=== PATIENT | male | born 1940 | race Caucasian/White ===

== ENCOUNTER 2020-02-20 07:14 | Outpatient (REF) | payer MEDICARE, SELFPAY ==
[2020-02-20 07:39] LABS: MANUAL DIFF FLAG NO
[2020-02-20 07:41] LABS: Basophils Absolute Auto 0.1 X10*3/uL (0.0-0.2); Eosinophils Absolute Auto 0.5 X10*3/uL (0.0-0.4); Eosinophils Percent Auto 7.2 % (0-4); Hematocrit 36.5 % (42-52); Hemoglobin 11.9 g/dl (14.0-18.0); Imm Gran Abs Auto 0.02 X10*3/uL (0.00-0.03); Imm Gran Pct Auto 0.3 % (0.0-0.4); Lymphocytes Absolute Auto 2.1 X10*3/uL (1.2-4.9); Lymphocytes Percent Auto 30.2 % (20-40); Mean Corpuscular HGB Conc 32.6 g/dl (31.0-36.0); Mean Corpuscular Hemoglobin 31.2 pg (27.0-33.0); Mean Corpuscular Volume 95.8 fL (80-98); Mean Platelet Volume 8.8 fL (9.4-12.4); Monocytes Absolute Auto 0.7 X10*3/uL (0.1-1.2); Monocytes Percent Auto 10.3 % (2-11); Neutrophils Absolute Auto 3.6 X10*3/uL (2.0-8.3); Platelet Count 334 X10*3/uL (160-400); Red Blood Count 3.81 X10*6/uL (4.60-5.80)
[2020-02-20 08:10] LABS: Alanine Aminotransferase 22 U/L (0-40); Alkaline Phosphatase 104 U/L (39-117); Anion Gap 13 (12-20); Aspartate Amino Transferase 19 U/L (5-37); Bilirubin Total 0.5 mg/dL (0.0-1.0); Blood Urea Nitrogen 29 mg/dL (9-16); Calcium 8.7 mg/dL (8.4-10.2); Carbon Dioxide 27 mmol/L (22-29); Chloride 104 mmol/L (96-108); Cholesterol 203 mg/dL; Estimated Glomerular Filt Rate 40; Glucose Random 102 mg/dL (60-115); HDL Cholesterol 43 mg/dL; LDL Cholesterol Calculated 132 mg/dl; Potassium 4.7 mmol/l (3.3-5.1); Sodium 139 mmol/L (135-145); Total Protein 6.8 g/dL (6.5-8.0); Triglycerides 141 mg/dL
[2020-02-20 08:20] LABS: Estimated Average Glucose 123 mg/dL; Hemoglobin A1c % 5.9 %
[2020-02-20 08:23] LABS: Uric Acid 5.5 mg/dL (3.4-7.0)
[2020-02-20 08:28] LABS: Prostate Specific Antigen Scr 1.52 ng/mL (<0.05-4.0)
[2020-02-20 09:47] LABS: Creatinine Urine 138.59 mg/dL; Microalbum/Creatinine Ratio Ur 10.8 ug/mg cr
== END 2020-02-20 07:15 | disposition home or self-care (01) ==
LOC: HO.LAB 07:14
PROVIDERS: Visit Provider Internal Medicine
DX: E11.22 Type 2 diabetes mellitus with diabetic chronic kidney disease (principal); I12.9 Hypertensive chronic kidney disease with stage 1 through stage 4 chronic kidney disease, or unspecified chronic kidney disease; N18.9 Chronic kidney disease, unspecified; D64.9 Anemia, unspecified; Z87.39 Personal history of other diseases of the musculoskeletal system and connective tissue
CPT/HCPCS: 36415; 80053; 80061; 82043; 83036; 84153; 84550; 85025

== ENCOUNTER 2020-05-07 07:27 | Outpatient (REF) | payer MEDICARE, SELFPAY ==
[2020-05-07 08:04] LABS: MANUAL DIFF FLAG NO
[2020-05-07 08:10] LABS: Basophils Absolute Auto 0.1 X10*3/uL (0.0-0.2); Basophils Percent Auto 0.7 % (0-2); Eosinophils Absolute Auto 0.5 X10*3/uL (0.0-0.4); Eosinophils Percent Auto 7.5 % (0-4); Hematocrit 36.3 % (42-52); Hemoglobin 11.9 g/dl (14.0-18.0); Imm Gran Abs Auto 0.02 X10*3/uL (0.00-0.03); Imm Gran Pct Auto 0.3 % (0.0-0.4); Lymphocytes Absolute Auto 2.2 X10*3/uL (1.2-4.9); Lymphocytes Percent Auto 31.6 % (20-40); Mean Corpuscular HGB Conc 32.8 g/dl (31.0-36.0); Mean Corpuscular Hemoglobin 31.2 pg (27.0-33.0); Mean Platelet Volume 8.7 fL (9.4-12.4); Monocytes Absolute Auto 0.8 X10*3/uL (0.1-1.2); Monocytes Percent Auto 11.6 % (2-11); Neutrophils Absolute Auto 3.4 X10*3/uL (2.0-8.3); Neutrophils Percent Auto 48.3 % (45-73); Platelet Count 320 X10*3/uL (160-400); Red Blood Count 3.82 X10*6/uL (4.60-5.80); White Blood Count 7.1 X10*3/uL (4.8-10.8)
[2020-05-07 08:40] LABS: Anion Gap 12 (12-20); Blood Urea Nitrogen 25 mg/dL (9-16); Calcium 8.7 mg/dL (8.4-10.2); Carbon Dioxide 26 mmol/L (22-29); Chloride 106 mmol/L (96-108); Estimated Glomerular Filt Rate 47; Potassium 4.8 mmol/l (3.3-5.1); Sodium 139 mmol/L (135-145)
== END 2020-05-07 07:28 | disposition home or self-care (01) ==
LOC: HO.LAB 07:27
PROVIDERS: PCP Internal Medicine; Visit Provider Internal Medicine
DX: N18.30 Chronic kidney disease, stage 3 unspecified (principal)
CPT/HCPCS: 36415; 80051; 82310; 82565; 84520; 85025

== ENCOUNTER 2020-05-16 16:00 | Outpatient (REF) | payer MEDICARE, SELFPAY ==
[2020-05-16 16:45] LABS: Influenza A PCR NEGATIVE (Negative); Influenza B PCR NEGATIVE (Negative); Resp Syncy Virus RNA Qual PCR NEGATIVE (Negative); SARS COV2 PCR INHOUSE NEGATIVE (Negative)
== END 2020-05-16 16:01 | disposition home or self-care (01) ==
LOC: HO.LNP 16:00
PROVIDERS: Visit Provider Internal Medicine
DX: R53.83 Other fatigue (principal); R11.0 Nausea; R09.82 Postnasal drip; Z20.822 Contact with and (suspected) exposure to COVID-19
CPT/HCPCS: 0241U

== ENCOUNTER 2020-06-20 09:21 | Emergency (ER) | payer MEDICARE, SELFPAY ==
--- NOTE | ~2020-06-20 | CT_ITS ---
EXAMINATION: CT BRAIN AND CT CERVICAL SPINE WITHOUT CONTRAST. CLINICAL INFORMATION: Trauma, pain. COMPARISON: CT brain 02/23/2016 TECHNIQUE: 5 mm thin axial and reformatted 2 mm thin sagittal and coronal images of brain were obtained. Subsequently three-minute thin axial and reformatted 2 mm thin sagittal and coronal images of cervical spine were obtained. DLP 11 82 mGy/cm. FINDINGS: BRAIN: There is no acute intra-axial, extra-axial bleed, masses or midline shift. There is no acute infarction in evolution. The lateral ventricles are symmetrical in size and configuration but mildly enlarged. The periventricular white matter is preserved. Bone windows reveal no calvarial abnormality. Bilateral paranasal sinuses and mastoid air cells are well-aerated. No scalp soft tissue abnormality seen. CERVICAL SPINE: There is mild straightening of cervical lordosis. The vertebral heights and alignment is normal. Loss of C5-C6 disc height with ventral and posterior spondylosis. Rest of the disc heights are maintained normal. The craniovertebral junction and the C1-C2 alignment is normal. There is no visible acute fracture, dislocation or subluxation seen. The prevertebral and paravertebral soft tissues are normal. The airway is widely patent. CT/CT cervical spine wo con IMPRESSION: No acute intracranial process seen. Age-related mild cerebral volume loss. Mild degenerative disc changes and spondylosis C5-C6 disc levels. No visible acute fracture, dislocation or subluxation.
--- NOTE | ~2020-06-20 | CT_ITS ---
EXAMINATION: CT BRAIN AND CT CERVICAL SPINE WITHOUT CONTRAST. CLINICAL INFORMATION: Trauma, pain. COMPARISON: CT brain 02/23/2016 TECHNIQUE: 5 mm thin axial and reformatted 2 mm thin sagittal and coronal images of brain were obtained. Subsequently three-minute thin axial and reformatted 2 mm thin sagittal and coronal images of cervical spine were obtained. DLP 11 82 mGy/cm. FINDINGS: BRAIN: There is no acute intra-axial, extra-axial bleed, masses or midline shift. There is no acute infarction in evolution. The lateral ventricles are symmetrical in size and configuration but mildly enlarged. The periventricular white matter is preserved. Bone windows reveal no calvarial abnormality. Bilateral paranasal sinuses and mastoid air cells are well-aerated. No scalp soft tissue abnormality seen. CERVICAL SPINE: There is mild straightening of cervical lordosis. The vertebral heights and alignment is normal. Loss of C5-C6 disc height with ventral and posterior spondylosis. Rest of the disc heights are maintained normal. The craniovertebral junction and the C1-C2 alignment is normal. There is no visible acute fracture, dislocation or subluxation seen. The prevertebral and paravertebral soft tissues are normal. The airway is widely patent. CT/CT head/brain wo con IMPRESSION: No acute intracranial process seen. Age-related mild cerebral volume loss. Mild degenerative disc changes and spondylosis C5-C6 disc levels. No visible acute fracture, dislocation or subluxation.
[2020-06-20 09:36] VITALS: BP 146/73; PULSE 67; RESP 16; O2SAT 98; BMI 36.2
--- NOTE | 2020-06-20 09:44 | ED.HEATRA ---
HPI - Head Injury General Chief complaint: Head Injury Stated complaint: fell hit head Time Seen by Provider: 06/20/20 09:36 Source: patient Mode of arrival: ambulatory Limitations: no limitations History of Present Illness HPI Narrative: 80yo female here with past medical history of arthritis, diabetes, GERD (gastroesophageal reflux disease), Gout, Hypertension here with complaints of head and neck pain s/p mechanical fall yesterday. Patient tells me he slipped falling backwards hitting his head. NO LOC. Continued BROWN, neck pain since fall. No vision changes, nausea, vomiting, dizziness, back pain, chest or abdominal pain. No anticogulation. Related Data Allergies Allergy/AdvReac Type Severity Reaction Status Date / Time acetaminophen [Percocet] Allergy Unknown vomiting Verified 12/09/17 00:00 cortisone [CORTISONE] Allergy Unknown SWELLING Unverified 01/07/20 16:43 nitroglycerin [NITROGLYCERIN] Allergy Unknown LOW BP AND Unverified 01/07/20 16:43 PASSED OUT, STATES NEEDED CPR oxycodone [OXYCODONE] AdvReac Intermediate NAUSEA & Unverified 01/07/20 16:43 VOMITING indomethacin [From INDOCIN] AdvReac Mild STOMACH Unverified 01/07/20 16:43 UPSET Cortisone AdvReac Unknown swelling Uncoded 12/09/17 00:00 Review of Systems Review of Systems: Yes all other systems are reviewed and are negative Constitutional: Constitutional: Reports no additional constitutional complaints, Denies body ache(s), Denies chills, Denies fever(s), Reports headache(s) and Denies weakness Eyes: Eyes: Reports no additional eye complaints and Denies change in vision ENT: Reports system reviewed and no additional complaints, except as documented, Denies dizziness, Reports headache(s), Denies nasal congestion, Denies nasal discharge and Reports neck pain Cardiovascular: Cardiovascular: Reports no additional cardiovascular complaints, Denies chest pain, Denies leg edema and Denies dyspnea Respiratory: Respiratory: Reports no additional respiratory complaints, Denies cough and Denies dyspnea Gastrointestinal: Gastrointestinal: Reports no additional gastrointestinal complaints, Denies abdominal pain, Denies diarrhea, Denies nausea and Denies vomiting Genitourinary: Genitourinary: Denies urinary incontinence Musculoskeletal: Musculoskeletal: Reports no additional musculoskeletal complaints, Denies back pain, Denies arthralgias, Denies joint swelling, Reports neck pain, Denies numbness and Denies tingling Integumentary/Breasts: Skin/Breast: Reports system reviewed and no additional complaints, except as docu and Denies rash Neurologic: Reports system reviewed and no additional complaints, except as documented, Denies Abnormal speech present, Denies dizziness, Reports headache(s), Denies numbness, Denies tingling and Denies weakness [facility] Past Medical History Attestation statement: The following information was validated with the patient. Source: old records reviewed and nursing notes reviewed Medical History Arthritis Diabetes GERD (gastroesophageal reflux disease) Gout Hypertension Social History Social History Advance Directives: No Advance Directives Information Provided: No Physical Exam Vital Signs: Vital Signs: Last Vital Signs Pulse 67 06/20/20 09:36 Resp 16 06/20/20 09:36 BP 146/73 H 06/20/20 09:36 Pulse Ox 98 06/20/20 09:36 Body Mass Index 36.2 Const: General: cooperative, healthy appearing, comfortable and no acute distress Orientation/consciousness: patient oriented x3 Limitations: no limitations HENMT: Head: Yes normal to inspection Ears: hearing grossly normal bilaterally General nose exam: Normal external nose present Face and sinus: Yes normal facial exam Mouth: Normal oral and palatal mucosa present Throat: Yes posterior oropharynx normal Eyes: General: appearance normal, both eyes and all related structures Pupils: Equal, round and reactive pupils present Neck: Other: bilateral soft tissue neck tenderness with no midline tenderness/step offs or deformities. FROM Neck: Yes normal visual inspection Chest: Chest palpation & inspection: normal inspection of the chest Resp: Effort & Inspection: normal respiratory effort Auscultation: clear to auscultation bilaterally Cardio: Rate: regular rate Rhythm: regular rhythm Peripheral pulses: Peripheral pulses 2+ throughout GI: Inspection: Yes normal to inspection Palpation (GI): Soft to palpation and nontender Auscultation: normal bowel sounds Back/Spine/Pelvis: Other: No midline tenderness, step offs or deformities or eechymosis, FROM Thoracic/Lumbar Spine: thoracic and lumbar spine normal to inspection Skin: General skin exam: no rashes or lesions noted Neuro: General: patient oriented x3, no focal motor deficits and normal sensation to monofilament Cranial nerves: Yes CN's II-XII intact bilaterally, Yes Equal, round and reactive pupils present, Yes Bilaterally intact EOM present, Yes Normal facial strength present and Yes Midline tongue present Cognition (Neuro): normal cognition Speech: No Abnormal speech present Gait exam (Neuro): Normal gait present Motor exam (neuro): 5/5 motor strength present throughout Sensory Exam: Normal double simultaneous stimulation for sensation Extrem: General: Yes normal to inspection NIH Stroke Scale Internal: Initial- Upon Arrival Level of Consciousness: Alert Level of Consciousness Questions: Answers both questions correctly Level of Consciousness Commands: Performs both tasks correctly Best Gaze: Normal Visual: No visual loss Facial Palsy: Normal Motor Arm (Right): No drift Motor Arm (Left): No drift Motor Leg (Right): No drift Motor Leg (Left): No drift Limb Ataxia: Absent Sensory: Normal Best Language: No aphasia Dysarthia: Normal Extinction and Inattention: No abnormality Score: 0 Course Course Course Narrative: 80yo male here with BROWN, neck pain s/o mechanical fall yesterday. No anticoagulation. Normal neuro exam. Will check CT head/neck. 1105-imaging unremarkable. Likely contusion and cervical strain. Normal neural exam. Stable vital signs. Reviewed findings with the patient. Reviewed worrisome signs and symptoms when to return to the emergency department. Comfortable discharge home. MDM - Head Injury Medical Records Attestation: I reviewed the patient's medical records. Lab Data Attestation: I reviewed the patient's lab results. Imaging Data Ct head/neck: Attestation: I personally reviewed and interpreted this imaging study as follows: Radiologist's impression: EXAMINATION: CT BRAIN AND CT CERVICAL SPINE WITHOUT CONTRAST. CLINICAL INFORMATION: Trauma, pain. COMPARISON: CT brain 02/23/2016 TECHNIQUE: 5 mm thin axial and reformatted 2 mm thin sagittal and coronal images of brain were obtained. Subsequently three-minute thin axial and reformatted 2 mm thin sagittal and coronal images of cervical spine were obtained. DLP 11 82 mGy/cm. FINDINGS: BRAIN: There is no acute intra-axial, extra-axial bleed, masses or midline shift. There is no acute infarction in evolution. The lateral ventricles are symmetrical in size and configuration but mildly enlarged. The periventricular white matter is preserved. Bone windows reveal no calvarial abnormality. Bilateral paranasal sinuses and mastoid air cells are well-aerated. No scalp soft tissue abnormality seen. CERVICAL SPINE: There is mild straightening of cervical lordosis. The vertebral heights and alignment is normal. Loss of C5-C6 disc height with ventral and posterior spondylosis. Rest of the disc heights are maintained normal. The craniovertebral junction and the C1-C2 alignment is normal. There is no visible acute fracture, dislocation or subluxation seen. The prevertebral and paravertebral soft tissues are normal. The airway is widely patent. CT/CT cervical spine wo con IMPRESSION: No acute intracranial process seen. Age-related mild cerebral volume loss. Mild degenerative disc changes and spondylosis C5-C6 disc levels. No visible acute fracture, dislocation or subluxation. Discharge Plan Discharge Clinical Impression: Closed head injury, Cervical strain Patient Disposition: Home, Self-Care Instructions: Cervical Strain (ED), Head Injury (ED) Referrals: Yoni Avila MD [Primary Care Provider] - 2 days Interventions: ED Discharge Assessment Last Done: 06/20/20 11:05 Discharge Date/Time: 06/20/20 11:06
== END 2020-06-20 11:06 | disposition home or self-care (01) ==
PROVIDERS: Emergency Provider Emergency Medicine; PCP Internal Medicine
DX: S09.90XA Unspecified injury of head, initial encounter (principal); S16.1XXA Strain of muscle, fascia and tendon at neck level, initial encounter; W01.198A Fall on same level from slipping, tripping and stumbling with subsequent striking against other object, initial encounter; E11.9 Type 2 diabetes mellitus without complications; I10 Essential (primary) hypertension; Y93.9 Activity, unspecified; Y92.039 Unspecified place in apartment as the place of occurrence of the external cause; Y99.9 Unspecified external cause status
CPT/HCPCS: 70450; 72125; 99283; 99284

== ENCOUNTER 2020-08-10 02:48 | Emergency (ER) | payer MEDICARE, SELFPAY ==
--- NOTE | ~2020-08-10 | XR_ITS ---
EXAMINATION: XR CHEST CLINICAL INFORMATION: Shortness of breath COMPARISON: 10/03/2012 TECHNIQUE: Frontal view of the chest was obtained. FINDINGS: Cardiac leads overlie the chest. The lungs are well expanded. Mild bronchial wall thickening. There is no focal consolidation, edema, or effusion. No pneumothorax. The cardiomediastinal silhouette is within normal limits. No acute osseous abnormality. XR/XR chest 1V IMPRESSION: No dense consolidation. Bronchial wall thickening can be seen with a small airways process such as asthma or atypical/viral infection.
[2020-08-10 02:57] VITALS: BP 119/55; PULSE 92; RESP 20; TEMP 37.6; O2SAT 93; BMI 43.0
--- NOTE | 2020-08-10 03:35 | PC.NURSE ---
PATIENT CLEANED. DRIED STOOL ALL OVER LEGS, FEET, GROINS, BUTTOCKS AND SCROTUM.
[2020-08-10 03:47] LABS: Basophils Percent Auto 0.2 % (0-2); Hematocrit 34.3 % (42-52); Hemoglobin 11.2 g/dl (14.0-18.0); Imm Gran Abs Auto 0.17 X10*3/uL (0.00-0.03); Imm Gran Pct Auto 0.8 % (0.0-0.4); Lymphocytes Absolute Auto 0.5 X10*3/uL (1.2-4.9); Lymphocytes Percent Auto 2.4 % (20-40); MANUAL DIFF FLAG SCAN; Mean Corpuscular HGB Conc 32.7 g/dl (31.0-36.0); Mean Corpuscular Hemoglobin 30.8 pg (27.0-33.0); Mean Corpuscular Volume 94.2 fL (80-98); Mean Platelet Volume 8.7 fL (9.4-12.4); Monocytes Absolute Auto 1.3 X10*3/uL (0.1-1.2); Monocytes Percent Auto 5.7 % (2-11); Neutrophils Percent Auto 90.9 % (45-73); Platelet Count 301 X10*3/uL (160-400); Red Blood Count 3.64 X10*6/uL (4.60-5.80); Red Cell Distribution Width 13.2 % (11.0-16.0); SCAN SMEAR FLAG 1
[2020-08-10 03:49] LABS: SLIDE REVIEW VERIFIED
[2020-08-10 04:31] LABS: Alanine Aminotransferase 16 U/L (0-40); Albumin Level 3.7 g/dL (3.5-5.0); Alkaline Phosphatase 109 U/L (39-117); Anion Gap 13 (12-20); Aspartate Amino Transferase 16 U/L (5-37); Bilirubin Total 0.6 mg/dL (0.0-1.0); Blood Urea Nitrogen 33 mg/dL (9-16); Calcium 8.8 mg/dL (8.4-10.2); Carbon Dioxide 24 mmol/L (22-29); Chloride 103 mmol/L (96-108); Creatinine Clr Calc Pharmacy 42.4; Estimated Glomerular Filt Rate 34; Glucose Random 150 mg/dL (60-115); Lipase 22 U/L (8-78); Sodium 135 mmol/L (135-145); Total Protein 6.6 g/dL (6.5-8.0)
--- NOTE | 2020-08-10 04:51 | ECG_ITS ---
Test Reason : SOB Blood Pressure : / mmHG Vent. Rate : 077 BPM Atrial Rate : 077 BPM P-R Int : 166 ms QRS Dur : 128 ms QT Int : 402 ms P-R-T Axes : 013 -16 017 degrees QTc Int : 454 ms Normal sinus rhythm Right bundle branch block Abnormal ECG When compared with ECG of 15-FEB-2019 08:07, Inferior infarct is now Present QT has lengthened Referred By: Rodríguez Marley Electronically Signed By:Dejon Tyler
--- NOTE | 2020-08-10 04:53 | ED_ITS ---
HPI - General Adult General Chief complaint: General Medical Stated complaint: WEAKNESS,FEVER, 90% RA, NO VACC, ? COVID Time Seen by Provider: 08/10/20 04:27 Source: patient Mode of arrival: EMS Limitations: no limitations History of Present Illness HPI narrative: 80-year-old male who presents emergency department for evaluation of weakness, shaking chills and diarrhea. The patient states that he felt weak throughout the day. He states that he did eat lunch and dinner. He was very tired and went to bed early at 6:30 p.m.. He states that prior to coming to the emergency department he woke up and he was feeling very cold, he had chills, he then had a large diarrheal stool. Given his symptoms, he called an ambulance was brought to the emergency department. He denied fever, chest pain, shortness of breath, abdominal pain. He denied nausea or vomiting. He denied myalgias, arthralgias or loss of sense of taste or smell. The patient has not had a COVID-19 infection and he has not been vaccinated for COVID-19. 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 He has not had any known COVID-19 exposure. Related Data Home Medications Medication Instructions Recorded Confirmed allopurinol 100 mg PO BID 08/10/20 08/10/20 lisinopril 10 mg PO DAILY 08/10/20 08/10/20 metformin 500 mg PO BID 08/10/20 08/10/20 omeprazole 20 mg PO DAILY 08/10/20 08/10/20 Allergies Allergy/AdvReac Type Severity Reaction Status Date / Time acetaminophen [Percocet] Allergy Unknown vomiting Verified 12/09/17 00:00 cortisone [CORTISONE] Allergy Unknown SWELLING Unverified 01/07/20 16:43 nitroglycerin [NITROGLYCERIN] Allergy Unknown LOW BP AND Unverified 01/07/20 16:43 PASSED OUT, STATES NEEDED CPR oxycodone [OXYCODONE] AdvReac Intermediate NAUSEA & Unverified 01/07/20 16:43 VOMITING indomethacin [From INDOCIN] AdvReac Mild STOMACH Unverified 01/07/20 16:43 UPSET Cortisone AdvReac Unknown swelling Uncoded 12/09/17 00:00 Review of Systems Review of Systems: Yes all other systems are reviewed and are negative [facility] Past Medical History [facility] Narrative: The patient lives at home with his . He is a former cigarette smoker but stopped 40 years prior. He occasionally drinks alcohol, he denies drug use. Medical History Arthritis Diabetes GERD (gastroesophageal reflux disease) Gout Hypertension Social History Social History Advance Directives: No Advance Directives Information Provided: No Physical Exam Vital Signs: Vital Signs: Last Vital Signs Temp 98.7 F 08/10/20 04:54 Pulse 76 08/10/20 04:54 Resp 22 H 08/10/20 04:54 BP 140/61 H 08/10/20 04:54 Pulse Ox 92 08/10/20 04:54 Body Mass Index 43.0 Const: General: cooperative Nutritional Appearance: overweight Orientation/consciousness: oriented to person and oriented to place Limitations: no limitations HENMT: Head: Yes normal to inspection, Yes normocephalic and Yes atraumatic Ears: external ears normal General nose exam: Normal external nose present Face and sinus: Yes normal facial exam Mouth: Normal oral and palatal mucosa present Throat: Yes posterior oropharynx normal Eyes: Periorbital: periorbital findings normal Eyelids: Yes eyelids normal Conjunctivae: conjunctivae normal Sclerae: sclerae normal Corneas: corneas normal Pupils: Equal, round and reactive pupils present Direct Ophthalmoscopy: normal light reflex Neck: Neck: Yes full ROM, Yes no lymphadenopathy, Yes no meningeal signs, Yes trachea midline and Yes supple Chest: Chest palpation & inspection: normal inspection of the chest and normal palpation of entire chest wall Resp: Effort & Inspection: normal respiratory effort and able to speak in complete sentences Auscultation: clear to auscultation bilaterally Cardio: Rate: regular rate Rhythm: regular rhythm Heart sounds: S1 normal heart sound present, S2 normal heart sound present and no murmurs GI: Inspection: Yes normal to inspection Palpation (GI): Soft to palpation, nontender, no guarding, not rigid and No hepatosplenomegaly present : General: Yes no CVA tenderness Back/Spine/Pelvis: Back: no CVA tenderness Cervical Spine: normal cervical lordosis Thoracic/Lumbar Spine: thoracic and lumbar spine normal to inspection Skin: Lesions: no lesions Rashes: no rashes Wounds: no wounds Neuro: General: oriented to person, oriented to place and no meningeal signs Cranial nerves: Yes CN's II-XII intact bilaterally and Yes Equal, round and reactive pupils present Cognition (Neuro): normal cognition Motor exam (neuro): 5/5 motor strength present throughout Extrem: General: Yes normal to inspection and Yes full ROM Psych: Appearance: well kempt Mental Status: mental status grossly normal Speech and movement: Normal speech and movement present Affect: normal affect Attitude: cooperative Thought process: Normal thought process present Thought content: Normal thought content present Course Course Course Narrative: 80-year-old male who presents emergency department for evaluation of weakness, chills, fatigue, and diarrhea. The patient's physical examination revealed a low-grade fever 99.7, and O2 saturation of 93% on room air. Physical examination was otherwise unremarkable. I did order a laboratory workup, chest x-ray EKG and stool evaluation to include C diff and stool cultur e. He was also ordered to get normal saline IV x1 L. 0459: [place] [address], anemia with an H&H of 11.2 and 34.9, anemia appears to be chronic. The patient's BUN and creatinine were elevated at 33 and 1.93 which is slightly above his baseline elevation. Chest x-ray revealed no dense consolidation but he does have bronchial wall thickening-I do not think that this is significant at this time. 0643: The patient is feeling better, he was not able to give us a stool sample or a urine sample. At this time I suspect that the patient may have a viral infection, his COVID-19 test is negative I did tell him and his [place] that this could be a false negative. The patient will be discharged home. He was advised stay home and rest until his symptoms have resolved completely. I told him if his symptoms get worse the knee needs to be re-evaluated retested for COVID-19. Medical Decision Making Lab Data Result diagrams: 08/10/20 03:37 08/10/20 03:37 Labs: Lab Results 08/10/20 08/10/20 08/10/20 Range/Units 03:37 03:37 03:37 WBC 22.0 H (4.8-10.8) X10*3/uL RBC 3.64 L (4.60-5.80) X10*6/uL Hgb 11.2 L (14.0-18.0) g/dl Hct 34.3 L (42-52) % MCV 94.2 (80-98) fL MCH 30.8 (27.0-33.0) pg MCHC 32.7 (31.0-36.0) g/dl RDW 13.2 (11.0-16.0) % Plt Count 301 (160-400) X10*3/uL MPV 8.7 L (9.4-12.4) fL Immature Gran % (Auto) 0.8 H (0.0-0.4) % Neut % (Auto) 90.9 H (45-73) % Lymph % (Auto) 2.4 L (20-40) % [place] % (Auto) 5.7 (2-11) % Eos % (Auto) 0.0 (0-4) % Baso % (Auto) 0.2 (0-2) % Lymph # (Auto) 0.5 L (1.2-4.9) X10*3/uL [place] # (Auto) 1.3 H (0.1-1.2) X10*3/uL Eos # (Auto) 0.0 (0.0-0.4) X10*3/uL Baso # (Auto) 0.0 (0.0-0.2) X10*3/uL Abs Immat Gran (auto) 0.17 H (0.00-0.03) X10*3/uL Absolute Neuts (auto) 20.0 H (2.0-8.3) X10*3/uL Absolute Nucleated RBC 0.000 (0.0-0.012) X10*3/uL Nucleated RBC % (auto) 0.0 (0.0-0.2) /100WBC Smear Tech's Comments VERIFIED Hold Blue Top SEE NOTE Sodium 135 (135-145) mmol/L Potassium 5.0 (3.3-5.1) mmol/L Chloride 103 (96-108) mmol/L Carbon Dioxide 24 (22-29) mmol/L Anion Gap 13 (12-20) BUN 33 H (9-16) mg/dL Creatinine 1.93 H (0.5-1.4) mg/dL Estim Creat Clear Calc 42.4 Estimated GFR 34 Random Glucose 150 H D (60-115) mg/dL Lactic Acid (0.5-2.0) mmol/L Calcium 8.8 (8.4-10.2) mg/dL Total Bilirubin 0.6 (0.0-1.0) mg/dL AST 16 (5-37) U/L ALT 16 (0-40) U/L Alkaline Phosphatase 109 (39-117) U/L Total Protein 6.6 (6.5-8.0) g/dL Albumin 3.7 (3.5-5.0) g/dL Lipase 22 (8-78) U/L COVID-19 (YARA) (Negative) COVID-19 Clin Com 08/10/20 08/10/20 Range/Units 04:47 04:51 WBC (4.8-10.8) X10*3/uL RBC (4.60-5.80) X10*6/uL Hgb (14.0-18.0) g/dl Hct (42-52) % MCV (80-98) fL MCH (27.0-33.0) pg MCHC (31.0-36.0) g/dl RDW (11.0-16.0) % Plt Count (160-400) X10*3/uL MPV (9.4-12.4) fL Immature Gran % (Auto) (0.0-0.4) % Neut % (Auto) (45-73) % Lymph % (Auto) (20-40) % [place] % (Auto) (2-11) % Eos % (Auto) (0-4) % Baso % (Auto) (0-2) % Lymph # (Auto) (1.2-4.9) X10*3/uL [place] # (Auto) (0.1-1.2) X10*3/uL Eos # (Auto) (0.0-0.4) X10*3/uL Baso # (Auto) (0.0-0.2) X10*3/uL Abs Immat Gran (auto) (0.00-0.03) X10*3/uL Absolute Neuts (auto) (2.0-8.3) X10*3/uL Absolute Nucleated RBC (0.0-0.012) X10*3/uL Nucleated RBC % (auto) (0.0-0.2) /100WBC Smear Tech's Comments Hold Blue Top Sodium (135-145) mmol/L Potassium (3.3-5.1) mmol/L Chloride (96-108) mmol/L Carbon Dioxide (22-29) mmol/L Anion Gap (12-20) BUN (9-16) mg/dL Creatinine (0.5-1.4) mg/dL Estim Creat Clear Calc Estimated GFR Random Glucose (60-115) mg/dL Lactic Acid 1.6 (0.5-2.0) mmol/L Calcium (8.4-10.2) mg/dL Total Bilirubin (0.0-1.0) mg/dL AST (5-37) U/L ALT (0-40) U/L Alkaline Phosphatase (39-117) U/L Total Protein (6.5-8.0) g/dL Albumin (3.5-5.0) g/dL Lipase (8-78) U/L COVID-19 (YARA) Negative (Negative) COVID-19 Clin Com See Note ECG Data Attestation: I personally reviewed and interpreted this ECG as follows: Interpretation: 0648: Normal sinus rhythm rate of 77, prolonged QRS of 128 millisecond secondary to right bundle-branch block, Q-wave noted in 3 and AVF, no acute ST segment elevation or depression, no ST segment elevation depression. There is no old EKG for comparison. Discharge Plan Discharge Clinical Impression: Fatigue Qualifiers: Encounter type: initial encounter Diarrhea Qualifiers: Diarrhea type: unspecified type Qualified Code(s): R19.7 - Diarrhea, unspecified Leukocytosis (leucocytosis) Qualifiers: Leukocytosis type: unspecified Qualified Code(s): D72.829 - Elevated white blood cell count, unspecified Patient Disposition: Home, Self-Care Instructions: Viral Syndrome (ED) Additional Instructions: Your laboratory evaluation did reveal an elevated white blood cell count, this is nonspecific and suggest that you have an infection. Your chest x-ray was unremarkable. Your EKG was unremarkable as well. At this time, I do not have a clear cause for her symptoms but I suspect that you have a viral infection. Your COVID-19 test was negative however this does not exclude COVID-19 since sometimes early on in this infection your test can be negative. If you are not better in 4 days then you need a repeat COVID-19 test Please follow the viral syndrome instructions and stay home and isolate herself until her symptoms have completely resolved for at least 3 days. Follow-up with your doctor in 2 days. Please return to the emergency department if your symptoms get worse or if you develop any symptoms that are concerning to you. Prescriptions: No Action metformin 500 mg tablet 500 mg PO BID RF: 0 allopurinol 100 mg tablet 100 mg PO BID RF: 0 lisinopril 10 mg tablet 10 mg PO DAILY RF: 0 omeprazole 20 mg capsule,delayed release(DR/EC) 20 mg PO DAILY RF: 0
[2020-08-10 04:54] VITALS: BP 140/61; PULSE 76; RESP 22; TEMP 37.1; O2SAT 92
[2020-08-10 05:18] LABS: COVID-19 Test Negative (Negative); IDNOW Serial# 9DD0AD1C
[2020-08-10 05:18] LABS: Lactic Acid 1.6 mmol/L (0.5-2.0)
[2020-08-10] MEDS: 0.9 % Sodium Chloride 1,000 ML 999 ML IV (05:25)
[2020-08-10 07:18] VITALS: BP 130/51; PULSE 91; RESP 17; O2SAT 94
== END 2020-08-10 07:39 | disposition home or self-care (01) ==
PROVIDERS: Emergency Provider Emergency Medicine Emergency Medical Services
DX: R50.9 Fever, unspecified (principal); D72.829 Elevated white blood cell count, unspecified; M79.10 Myalgia, unspecified site; R19.7 Diarrhea, unspecified; Z20.822 Contact with and (suspected) exposure to COVID-19; Z79.899 Other long term (current) drug therapy
CPT/HCPCS: 36415; 71045; 80053; 83605; 83690; 85025; 87040; 87635; 93005; 99284

== ENCOUNTER 2020-08-18 12:49 | Outpatient (REF) | payer MEDICARE, SELFPAY ==
[2020-08-18 14:28] LABS: Glucose Urine UA NEG (NEG); Leukocyte Esterase Urine NEG (NEG); Nitrite Urine NEG (NEG); Specific Gravity - Urine 1.025 (1.005-1.025); Urine Blood NEG (NEG); Urine Ketones NEG (NEG); Urine Protein NEG (NEG-TRACE)
[2020-08-18 14:29] LABS: Appearance Urine CLEAR; Color Urine YELLOW
[2020-08-18 14:30] LABS: MANUAL DIFF FLAG NO
[2020-08-18 14:40] LABS: Basophils Absolute Auto 0.1 X10*3/uL (0.0-0.2); Basophils Percent Auto 0.9 % (0-2); Eosinophils Absolute Auto 0.7 X10*3/uL (0.0-0.4); Eosinophils Percent Auto 5.3 % (0-4); Hematocrit 35.1 % (42-52); Hemoglobin 11.4 g/dl (14.0-18.0); Imm Gran Abs Auto 0.41 X10*3/uL (0.00-0.03); Imm Gran Pct Auto 3.3 % (0.0-0.4); Lymphocytes Absolute Auto 3.1 X10*3/uL (1.2-4.9); Lymphocytes Percent Auto 25.4 % (20-40); Mean Corpuscular HGB Conc 32.5 g/dl (31.0-36.0); Mean Corpuscular Hemoglobin 30.5 pg (27.0-33.0); Mean Corpuscular Volume 93.9 fL (80-98); Mean Platelet Volume 9.2 fL (9.4-12.4); Monocytes Absolute Auto 0.8 X10*3/uL (0.1-1.2); Monocytes Percent Auto 6.7 % (2-11); Neutrophils Absolute Auto 7.2 X10*3/uL (2.0-8.3); Neutrophils Percent Auto 58.4 % (45-73); Platelet Count 473 X10*3/uL (160-400); Red Blood Count 3.74 X10*6/uL (4.60-5.80); Red Cell Distribution Width 13.1 % (11.0-16.0); White Blood Count 12.3 X10*3/uL (4.8-10.8)
[2020-08-18 14:53] LABS: Estimated Average Glucose 114 mg/dL; Hemoglobin A1c % 5.6 %
[2020-08-18 15:37] LABS: Alanine Aminotransferase 41 U/L (0-40); Albumin Level 3.8 g/dL (3.5-5.0); Alkaline Phosphatase 96 U/L (39-117); Anion Gap 16 (12-20); Aspartate Amino Transferase 24 U/L (5-37); Bilirubin Total 0.2 mg/dL (0.0-1.0); Blood Urea Nitrogen 25 mg/dL (9-16); C Reactive Protein 1.72 mg/dL (< or = 0.50); Calcium 8.7 mg/dL (8.4-10.2); Carbon Dioxide 20 mmol/L (22-29); Chloride 106 mmol/L (96-108); Estimated Glomerular Filt Rate 44; Glucose Random 111 mg/dL (60-115); Lipase 38 U/L (8-78); Potassium 4.2 mmol/L (3.3-5.1); Sodium 138 mmol/L (135-145); Total Protein 6.8 g/dL (6.5-8.0)
== END 2020-08-18 12:50 | disposition home or self-care (01) ==
LOC: HO.LAB 12:49
PROVIDERS: PCP Internal Medicine; Visit Provider Internal Medicine
DX: R10.9 Unspecified abdominal pain (principal); R63.4 Abnormal weight loss; E11.9 Type 2 diabetes mellitus without complications; N18.9 Chronic kidney disease, unspecified
CPT/HCPCS: 36415; 80053; 81003; 83036; 83690; 85025; 86140; 87086

== ENCOUNTER → 2020-08-23 08:49 | Outpatient (REF) | payer MEDICARE, SELFPAY | LOC: HO.SL 08:49 | PROVIDERS: PCP Internal Medicine; Visit Provider Internal Medicine | DX: R06.83 Snoring (principal); R06.89 Other abnormalities of breathing; G47.30 Sleep apnea, unspecified | CPT/HCPCS: 95806 ==

== ENCOUNTER → 2020-08-29 13:55 | Outpatient (BNVA) | payer MEDICARE, SELFPAY | PROVIDERS: PCP Internal Medicine; Visit Provider Internal Medicine | DX: G47.33 Obstructive sleep apnea (adult) (pediatric) (principal); G47.34 Idiopathic sleep related nonobstructive alveolar hypoventilation; E66.9 Obesity, unspecified; Z79.899 Other long term (current) drug therapy | CPT/HCPCS: 99202 ==

== ENCOUNTER → 2020-09-13 20:08 | Outpatient (REF) | payer MEDICARE, SELFPAY | LOC: HO.SL 20:08 | PROVIDERS: PCP Internal Medicine; Visit Provider Internal Medicine | DX: G47.33 Obstructive sleep apnea (adult) (pediatric) (principal); G47.34 Idiopathic sleep related nonobstructive alveolar hypoventilation | CPT/HCPCS: 95811 ==

== ENCOUNTER 2020-09-23 17:37 | Emergency (ER) | payer MEDICARE, SELFPAY | END 2020-09-23 20:32 | disposition left against medical advice (07) | PROVIDERS: Emergency Provider Emergency Medicine; PCP Internal Medicine | DX: S69.90XA Unspecified injury of unspecified wrist, hand and finger(s), initial encounter (principal); X58.XXXA Exposure to other specified factors, initial encounter; Y93.9 Activity, unspecified; Y92.9 Unspecified place or not applicable; Y99.9 Unspecified external cause status ==

== ENCOUNTER → 2020-09-26 11:40 | Outpatient (BNVA) | payer MEDICARE, SELFPAY | PROVIDERS: PCP Internal Medicine; Visit Provider Internal Medicine | DX: G47.33 Obstructive sleep apnea (adult) (pediatric) (principal); G47.34 Idiopathic sleep related nonobstructive alveolar hypoventilation | CPT/HCPCS: 99212 ==

== ENCOUNTER 2020-11-04 11:23 | Outpatient (REF) | payer MEDICARE, SELFPAY ==
[2020-11-04 13:05] LABS: MANUAL DIFF FLAG NO
[2020-11-04 13:14] LABS: Basophils Absolute Auto 0.1 X10*3/uL (0.0-0.2); Basophils Percent Auto 0.9 % (0-2); Eosinophils Absolute Auto 0.5 X10*3/uL (0.0-0.4); Eosinophils Percent Auto 6.2 % (0-4); Hematocrit 34.3 % (42-52); Hemoglobin 10.9 g/dl (14.0-18.0); Imm Gran Abs Auto 0.02 X10*3/uL (0.00-0.03); Imm Gran Pct Auto 0.3 % (0.0-0.4); Lymphocytes Absolute Auto 2.2 X10*3/uL (1.2-4.9); Lymphocytes Percent Auto 27.7 % (20-40); Mean Corpuscular HGB Conc 31.8 g/dl (31.0-36.0); Mean Corpuscular Hemoglobin 30.8 pg (27.0-33.0); Mean Corpuscular Volume 96.9 fL (80-98); Mean Platelet Volume 9.5 fL (9.4-12.4); Monocytes Absolute Auto 0.7 X10*3/uL (0.1-1.2); Monocytes Percent Auto 8.7 % (2-11); Neutrophils Absolute Auto 4.4 X10*3/uL (2.0-8.3); Neutrophils Percent Auto 56.2 % (45-73); Platelet Count 326 X10*3/uL (160-400); Red Blood Count 3.54 X10*6/uL (4.60-5.80); Red Cell Distribution Width 13.4 % (11.0-16.0); White Blood Count 7.9 X10*3/uL (4.8-10.8)
[2020-11-04 13:52] LABS: Anion Gap 13 (12-20); Blood Urea Nitrogen 31 mg/dL (9-16); Calcium 9.3 mg/dL (8.4-10.2); Carbon Dioxide 24 mmol/L (22-29); Chloride 108 mmol/L (96-108); Estimated Glomerular Filt Rate 39; Potassium 5.1 mmol/L (3.3-5.1); Sodium 140 mmol/L (135-145)
[2020-11-04 14:15] LABS: Vitamin D 25-OH Total 16.9 ng/mL (>30)
[2020-11-04 14:35] LABS: Creatinine Urine 112.11 mg/dL; Microalbum/Creatinine Ratio Ur 12.4 ug/mg cr
[2020-11-07 15:11] LABS: Calcium (PTHI) 9.2 mg/dL (8.6-10.3); PTHI 57 pg/mL (14-64)
== END 2020-11-04 11:24 | disposition home or self-care (01) ==
LOC: HO.LAB 11:23
PROVIDERS: PCP Internal Medicine; Visit Provider Internal Medicine
DX: N18.32 Chronic kidney disease, stage 3b (principal); D63.1 Anemia in chronic kidney disease; R80.8 Other proteinuria
CPT/HCPCS: 36415; 80051; 82043; 82306; 82310; 82565; 83970; 84520; 85025

== ENCOUNTER 2021-04-29 07:31 | Outpatient (REF) | payer MEDICARE, SELFPAY ==
[2021-04-29 07:44] LABS: MANUAL DIFF FLAG NO
[2021-04-29 08:19] LABS: Basophils Absolute Auto 0.1 X10*3/uL (0.0-0.2); Basophils Percent Auto 0.9 % (0-2); Eosinophils Absolute Auto 0.5 X10*3/uL (0.0-0.4); Eosinophils Percent Auto 6.7 % (0-4); Hemoglobin 12.3 g/dl (14.0-18.0); Imm Gran Abs Auto 0.02 X10*3/uL (0.00-0.03); Imm Gran Pct Auto 0.3 % (0.0-0.4); Lymphocytes Absolute Auto 2.4 X10*3/uL (1.2-4.9); Lymphocytes Percent Auto 33.8 % (20-40); Mean Corpuscular HGB Conc 32.4 g/dl (31.0-36.0); Mean Corpuscular Hemoglobin 30.9 pg (27.0-33.0); Mean Corpuscular Volume 95.5 fL (80.0-98.0); Monocytes Absolute Auto 0.8 X10*3/uL (0.1-1.2); Monocytes Percent Auto 11.8 % (2-11); Neutrophils Absolute Auto 3.3 x10*3/uL (2.0-8.3); Neutrophils Percent Auto 46.5 % (45-73); Platelet Count 378 X10*3/uL (160-400); Red Blood Count 3.98 X10*6/uL (4.60-5.80); Red Cell Distribution Width 13.1 % (11.0-16.0)
[2021-04-29 08:55] LABS: Alanine Aminotransferase 22 U/L (0-40); Alkaline Phosphatase 116 U/L (39-117); Anion Gap 12 (12-20); Aspartate Amino Transferase 21 U/L (5-37); Bilirubin Total 0.2 mg/dL (0.0-1.0); Blood Urea Nitrogen 25 mg/dL (9-16); Calcium 9.6 mg/dL (8.4-10.2); Carbon Dioxide 28 mmol/L (22-29); Chloride 104 mmol/L (96-108); Estimated Glomerular Filt Rate 37; Glucose Random 99 mg/dL (60-115); Magnesium 2.2 mg/dL (1.6-2.6); Potassium 5.7 mmol/L (3.3-5.1); Sodium 138 mmol/L (135-145); Total Protein 7.2 g/dL (6.5-8.0)
[2021-04-29 09:01] LABS: Vitamin D 25-OH Total 28.7 ng/mL (>30)
[2021-04-29 09:23] LABS: Creatinine Urine 87.29 mg/dL; Microalbum/Creatinine Ratio Ur 11.4 ug/mg cr
[2021-05-01 13:46] LABS: Calcium (PTHI) 9.7 mg/dL (8.6-10.3); PTHI 64 pg/mL (14-64)
== END 2021-04-29 07:32 | disposition home or self-care (01) ==
LOC: HO.LAB 07:31
PROVIDERS: PCP Internal Medicine; Visit Provider Internal Medicine
DX: I12.9 Hypertensive chronic kidney disease with stage 1 through stage 4 chronic kidney disease, or unspecified chronic kidney disease (principal); E11.22 Type 2 diabetes mellitus with diabetic chronic kidney disease; N18.31 Chronic kidney disease, stage 3a; E11.29 Type 2 diabetes mellitus with other diabetic kidney complication
CPT/HCPCS: 36415; 80053; 82043; 82306; 83735; 83970; 85025

== ENCOUNTER 2021-10-04 11:47 | Outpatient (REF) | payer MEDICARE, SELFPAY ==
[2021-10-04 13:44] LABS: MANUAL DIFF FLAG NO
[2021-10-04 13:50] LABS: Basophils Absolute Auto 0.1 X10*3/uL (0.0-0.2); Basophils Percent Auto 0.9 % (0-2); Eosinophils Absolute Auto 0.4 X10*3/uL (0.0-0.4); Eosinophils Percent Auto 5.6 % (0-4); Imm Gran Abs Auto 0.03 X10*3/uL (0.00-0.03); Imm Gran Pct Auto 0.4 % (0.0-0.4); Lymphocytes Absolute Auto 2.1 X10*3/uL (1.2-4.9); Lymphocytes Percent Auto 27.4 % (20-40); Mean Corpuscular HGB Conc 32.4 g/dl (31.0-36.0); Mean Corpuscular Hemoglobin 30.7 pg (27.0-33.0); Mean Platelet Volume 9.7 fL (9.4-12.4); Monocytes Absolute Auto 0.7 X10*3/uL (0.1-1.2); Monocytes Percent Auto 9.4 % (2-11); Neutrophils Absolute Auto 4.3 x10*3/uL (2.0-8.3); Neutrophils Percent Auto 56.3 % (45-73); Platelet Count 332 X10*3/uL (160-400); Red Blood Count 3.58 X10*6/uL (4.60-5.80); Red Cell Distribution Width 13.7 % (11.0-16.0); White Blood Count 7.7 X10*3/uL (4.8-10.8)
[2021-10-04 14:25] LABS: Alanine Aminotransferase 22 U/L (0-40); Albumin Level 3.9 g/dL (3.5-5.0); Alkaline Phosphatase 115 U/L (39-117); Anion Gap 13 (12-20); Aspartate Amino Transferase 19 U/L (5-37); Bilirubin Total 0.2 mg/dL (0.0-1.0); Blood Urea Nitrogen 36 mg/dL (9-16); Calcium 9.1 mg/dL (8.4-10.2); Carbon Dioxide 25 mmol/L (22-29); Chloride 107 mmol/L (96-108); Estimated Glomerular Filt Rate 38; Glucose Random 99 mg/dL (60-115); Potassium 5.2 mmol/L (3.3-5.1); Sodium 140 mmol/L (135-145)
[2021-10-04 14:36] LABS: Uric Acid 5.4 mg/dL (3.4-7.0); Vitamin B12 242 pg/mL (200-900)
[2021-10-04 14:40] LABS: Estimated Average Glucose 114 mg/dL; Hemoglobin A1c % 5.6 %
== END 2021-10-04 11:48 | disposition home or self-care (01) ==
LOC: HO.10HDL 11:47
PROVIDERS: Visit Provider Internal Medicine
DX: E11.22 Type 2 diabetes mellitus with diabetic chronic kidney disease (principal); N18.9 Chronic kidney disease, unspecified; M10.9 Gout, unspecified; E11.42 Type 2 diabetes mellitus with diabetic polyneuropathy
CPT/HCPCS: 36415; 80053; 82607; 83036; 84550; 85025

== ENCOUNTER 2022-01-03 07:52 | Outpatient (REF) | payer MEDICARE, SELFPAY ==
[2022-01-03 08:26] LABS: MANUAL DIFF FLAG NO
[2022-01-03 09:05] LABS: Basophils Absolute Auto 0.1 X10*3/uL (0.0-0.2); Eosinophils Absolute Auto 0.4 X10*3/uL (0.0-0.4); Eosinophils Percent Auto 6.8 % (0-4); Hematocrit 35.3 % (42.0-52.0); Hemoglobin 11.6 g/dl (14.0-18.0); Imm Gran Abs Auto 0.01 X10*3/uL (0.00-0.03); Imm Gran Pct Auto 0.2 % (0.0-0.4); Lymphocytes Absolute Auto 1.8 X10*3/uL (1.2-4.9); Lymphocytes Percent Auto 29.2 % (20-40); Mean Corpuscular HGB Conc 32.9 g/dl (31.0-36.0); Mean Corpuscular Hemoglobin 31.3 pg (27.0-33.0); Mean Corpuscular Volume 95.1 fL (80.0-98.0); Mean Platelet Volume 9.2 fL (9.4-12.4); Monocytes Absolute Auto 0.7 X10*3/uL (0.1-1.2); Monocytes Percent Auto 11.4 % (2-11); Neutrophils Absolute Auto 3.3 x10*3/uL (2.0-8.3); Neutrophils Percent Auto 51.4 % (45-73); Platelet Count 336 X10*3/uL (160-400); Red Blood Count 3.71 X10*6/uL (4.60-5.80); Red Cell Distribution Width 13.2 % (11.0-16.0); White Blood Count 6.3 X10*3/uL (4.8-10.8)
[2022-01-03 09:55] LABS: Creatinine Urine 65.81 mg/dL; Microalbum/Creatinine Ratio Ur 22.7 ug/mg cr
[2022-01-03 09:57] LABS: Vitamin D 25-OH Total 29.4 ng/mL (>30)
[2022-01-03 10:07] LABS: Anion Gap 14 (12-20); Blood Urea Nitrogen 30 mg/dL (9-16); Calcium 9.2 mg/dL (8.4-10.2); Carbon Dioxide 26 mmol/L (22-29); Chloride 104 mmol/L (96-108); Estimated Glomerular Filt Rate 40; Potassium 4.9 mmol/L (3.3-5.1); Sodium 139 mmol/L (135-145)
[2022-01-04 14:03] LABS: Calcium (PTHI) 9.2 mg/dL (8.6-10.3); PTHI 51 pg/mL (16-77)
== END 2022-01-03 07:53 | disposition home or self-care (01) ==
LOC: HO.LAB 07:52
PROVIDERS: Absent Provider Internal Medicine; PCP Internal Medicine; Visit Provider Internal Medicine
DX: I12.9 Hypertensive chronic kidney disease with stage 1 through stage 4 chronic kidney disease, or unspecified chronic kidney disease (principal); N18.32 Chronic kidney disease, stage 3b; R80.1 Persistent proteinuria, unspecified; E87.5 Hyperkalemia
CPT/HCPCS: 36415; 80051; 82043; 82306; 82310; 82565; 83970; 84520; 85025

== ENCOUNTER 2022-01-10 11:55 | Outpatient (REF) | payer MEDICARE, SELFPAY ==
[2022-01-10 13:59] LABS: Anion Gap 13 (12-20); Blood Urea Nitrogen 26 mg/dL (9-16); Calcium 8.9 mg/dL (8.4-10.2); Carbon Dioxide 27 mmol/L (22-29); Chloride 103 mmol/L (96-108); Estimated Glomerular Filt Rate 41; Glucose Random 91 mg/dL (60-115); Iron 85 mcg/dL (45-160); Percent Iron Saturation 27 % (15-50); Potassium 5.3 mmol/L (3.3-5.1); Sodium 138 mmol/L (135-145); Total Iron Binding Capacity 311 mcg/dL (228-428); Unsaturated Iron Binding 226 ug/dL
[2022-01-10 14:05] LABS: Estimated Average Glucose 114 mg/dL; Hemoglobin A1c % 5.6 %
[2022-01-10 14:38] LABS: Vitamin B12 262 pg/mL (200-900)
== END 2022-01-10 11:56 | disposition home or self-care (01) ==
LOC: HO.10HDL 11:55
PROVIDERS: Visit Provider Internal Medicine
DX: E11.9 Type 2 diabetes mellitus without complications (principal); N18.9 Chronic kidney disease, unspecified; D64.9 Anemia, unspecified; G62.9 Polyneuropathy, unspecified
CPT/HCPCS: 36415; 80048; 82607; 83036; 83540

== ENCOUNTER 2022-04-14 08:27 | Emergency (ER) | payer MEDICARE, SELFPAY ==
--- NOTE | 2022-04-14 08:28 | ED.GENADULT ---
HPI - General Adult General Chief complaint: Fall Stated complaint: LEG WEAKNESS, [facility], FLU SYMPTOMS Time Seen by Provider: 04/14/22 08:28 Source: patient, family () and EMS Mode of arrival: EMS Limitations: no limitations History of Present Illness HPI narrative: Patient is a 82 year old assigned male at with a history of ANNA presenting to the emergency department today with weakness. Patient states that he woke up this morning and felt weak as he walked to the bathroom and slid to the floor. Patient denies hitting his head with the incident. Patient denies any loss of consciousness. Patient denies any dizziness, lightheadedness, abdominal pain, nausea, vomiting, fever, chills, blurry vision, double vision, loss of vision, chest pain, difficulty breathing, shortness of breath, back pain, night sweats, pain with urination, increased urinary frequency, increased urinary urgency, blood in his urine or stool, syncope or a near syncopal episode, recent trauma or falls, bowel incontinence, bladder incontinence, bowel retention, bladder retention, or any other complaints at this time. Onset (ago): hour(s) Severity: mild Severity scale (1-10): 3 Relieving factors: none Exacerbating factors: none Associated symptoms: denies other symptoms Treatments prior to arrival: none Related Data Home Medications Medication Instructions Recorded Confirmed allopurinol 100 mg tablet 100 mg PO BID 08/10/20 08/10/20 lisinopril 10 mg tablet 10 mg PO DAILY 08/10/20 08/10/20 metformin 500 mg tablet 500 mg PO BID 08/10/20 08/10/20 omeprazole 20 mg capsule,delayed 20 mg PO DAILY 08/10/20 08/10/20 release esomeprazole magnesium 20 mg 20 mg PO DAILY 08/29/20 capsule,delayed release Allergies Allergy/AdvReac Type Severity Reaction Status Date / Time acetaminophen [Percocet] Allergy Unknown vomiting Verified 09/26/20 11:47 cortisone [CORTISONE] Allergy Unknown SWELLING Verified 09/26/20 11:47 nitroglycerin [NITROGLYCERIN] Allergy Unknown LOW BP AND Verified 09/26/20 11:47 PASSED OUT, STATES NEEDED CPR oxycodone [OXYCODONE] AdvReac Intermediate NAUSEA & Verified 09/26/20 11:47 VOMITING indomethacin [From INDOCIN] AdvReac Mild STOMACH Verified 09/26/20 11:47 UPSET Review of Systems Constitutional: Constitutional: Reports no additional constitutional complaints, Denies chills, Denies fever(s), Denies night sweats and Reports weakness Eyes: Eyes: Reports no additional eye complaints, Denies blurry vision, Denies change in vision, Denies diplopia, Denies eye discharge, Denies loss of vision and Denies eye pain ENT: Denies dizziness Cardiovascular: Cardiovascular: Reports no additional cardiovascular complaints, Denies chest pain, Denies lightheadedness, Denies Loss of Consciousness and Denies dyspnea Respiratory: Respiratory: Reports no additional respiratory complaints and Denies dyspnea Gastrointestinal: Gastrointestinal: Reports no additional gastrointestinal complaints, Denies abdominal pain, Denies melena, Denies hematochezia, Denies change in bowel habits and Denies change in stool character Genitourinary: Genitourinary: Reports no additional male genitourinary complaints, Denies hematuria, Denies oliguria, Denies difficulty urinating, Denies dysuria, Denies urinary frequency, Denies urinary hesitancy, Denies urinary incontinence and Denies urinary urgency Musculoskeletal: Musculoskeletal: Reports no additional musculoskeletal complaints, Denies numbness and Denies tingling Neurologic: Denies dizziness, Denies loss of vision, Denies numbness, Denies tingling and Reports weakness Psychiatric: Psychiatric: Reports no additional psychiatric complaints Endocrine: Endocrine: Reports no additional endocrine complaints Hematologic/Lymphatic: Hematologic/Lymphatic: Reports no additional hematologic/lymphatic complaints Allergic/Immunologic: Allergic/Immunologic: Reports no additional allergic/immunologic complaints [facility] Past Medical History Attestation statement: The following information was validated with the patient. Source: old records reviewed, obtained from family (patient's ) and nursing notes reviewed Medical History Arthritis Diabetes GERD (gastroesophageal reflux disease) Gout Hypertension Nocturnal hypoxemia Obesity (BMI 30-39.9) ANNA (obstructive sleep apnea) Social History Social History Advance Directives: No Advance Directives Information Provided: Yes Physical Exam ED Vital Signs: Vital Signs - 24 hr 04/14/22 08:33 Temperature 98.5 F Pulse Rate 83 Respiratory Rate 20 Blood Pressure 137/53 L Pulse Oximetry 97 Oxygen Delivery Method Room Air BMI result Body Mass Index 34.5 Const General: cooperative, no acute distress, alert and awake Nutritional Appearance: well nourished Orientation/consciousness: patient oriented x3 Limitations: no limitations HENMT Head: Yes normal to inspection and Yes atraumatic Ears: hearing grossly normal bilaterally and external ears normal General nose exam: Normal external nose present, no nasal discharge noted and no epistaxis Face and sinus: Yes normal facial exam, No abrasion and No laceration Mouth: Normal oral and palatal mucosa present, no drooling and no muffled voice Eyes General: appearance normal, both eyes and all related structures Periorbital: periorbital findings normal Eyelids: Yes eyelids normal Conjunctivae: conjunctivae normal Pupils: Equal, round and reactive pupils present EOM: EOMs intact bilaterally Neck Neck: Yes normal visual inspection, Yes full ROM and Yes no lymphadenopathy Chest Chest palpation & inspection: normal inspection of the chest Resp Effort & Inspection: normal respiratory effort and able to speak in complete sentences Auscultation: clear to auscultation bilaterally Cardio Rate: regular rate Rhythm: regular rhythm GI Inspection: Yes normal to inspection Palpation (GI): Soft to palpation, not firm, nontender, no guarding and not rigid Neuro General: patient oriented x3 and moves all extremities Cranial nerves: Yes Equal, round and reactive pupils present Cognition (Neuro): normal cognition Motor exam (neuro): 5/5 motor strength present throughout Sensory Exam: Normal double simultaneous stimulation for sensation Coordination: [id number] test normal Extrem General: Yes normal to inspection, Yes full ROM and Yes capillary refill normal Psych Appearance: grossly normal Mental Status: mental status grossly normal Affect: normal affect Attitude: cooperative Thought process: Normal thought process present Thought content: Normal thought content present Insight: Good insight present (Psych) Medications Administered Discontinued Medications Generic Name Dose Route Start Last Admin Trade Name Freq PRN Reason Stop Dose Admin Sodium Chloride 1,000 mls @ 999 mls/hr 04/14/22 08:45 04/14/22 10:38 Ns IV 04/14/22 09:45 Infused .Q1H1M ELÍAS Infusion Medical Decision Making Medical Decision Making MDM Narrative: Patient is an 82 year old assigned male at with a history of ANNA presenting to the emergency department today with weakness. Patient's physical exam was unremarkable. Patient's blood work was unremarkable. Patient's chest x-ray showed no acute process. Patient's rapid influenza swab was positive. I explained my physical exam findings as well as all test results to the patient and the patient's . I answered all questions asked by the patient and the patient's . I stressed the importance of the patient taking his medication as prescribed. I stressed the importance of the patient following up with his primary care provider. I stressed the importance of the patient returning to the emergency department immediately if his symptoms were to worsen or if he were to develop any dizziness, shortness of breath, difficulty breathing, chest pain, blurry vision, loss of vision, nausea, vomiting, abdominal pain, fever, chills, back pain, or any other complaints. Patient and the patient's verbalized agreement and understanding with this treatment plan and discharge. Differential Diagnosis Differential Diagnoses: The differential diagnosis associated with the presentation includes weakness, URI, influenza Lab Data MDM Lab Attestation statement: I reviewed the patient's lab results. Result Diagrams: 04/14/22 08:48 04/14/22 08:48 Labs: Lab Results 04/14/22 04/14/22 04/14/22 Range/Units 08:48 08:48 08:48 WBC 6.9 (4.8-10.8) X10*3/uL RBC 3.92 L (4.60-5.80) X10*6/uL Hgb 11.9 L (14.0-18.0) g/dl Hct 36.7 L (42.0-52.0) % MCV 93.6 (80.0-98.0) fL MCH 30.4 (27.0-33.0) pg MCHC 32.4 (31.0-36.0) g/dl RDW 13.6 (11.0-16.0) % Plt Count 306 (160-400) X10*3/uL MPV 8.6 L (9.4-12.4) fL Immature Gran % (Auto) 0.1 (0.0-0.4) % Neut % (Auto) 80.9 H (45-73) % Lymph % (Auto) 7.3 L (20-40) % [place] % (Auto) 10.6 (2-11) % Eos % (Auto) 0.7 (0-4) % Baso % (Auto) 0.4 (0-2) % Lymph # (Auto) 0.5 L (1.2-4.9) X10*3/uL [place] # (Auto) 0.7 (0.1-1.2) X10*3/uL Eos # (Auto) 0.1 (0.0-0.4) X10*3/uL Baso # (Auto) 0.0 (0.0-0.2) X10*3/uL Abs Immat Gran (auto) 0.01 (0.00-0.03) X10*3/uL Absolute Neuts (auto) 5.6 (2.0-8.3) x10*3/uL Absolute Nucleated RBC 0.000 (0.0-0.012) X10*3/uL Nucleated RBC % (auto) 0.0 (0.0-0.2) /100WBC Sodium 137 (135-145) mmol/L Potassium 4.6 (3.3-5.1) mmol/L Chloride 105 (96-108) mmol/L Carbon Dioxide 25 (22-29) mmol/L Anion Gap 12 (12-20) BUN 24 H (9-16) mg/dL Creatinine 1.76 H (0.5-1.4) mg/dL Estim Creat Clear Calc 42.4 Estimated GFR 37 Random Glucose 121 H (60-115) mg/dL Lactic Acid 1.2 (0.5-2.0) mmol/L Calcium 9.0 (8.4-10.2) mg/dL Magnesium 1.8 (1.6-2.6) mg/dL Total Bilirubin 0.3 (0.0-1.0) mg/dL AST 19 (5-37) U/L ALT 19 (0-40) U/L Alkaline Phosphatase 138 H (39-117) U/L Troponin I High Sens (<3.5-35.0) ng/L Total Protein 6.9 (6.5-8.0) g/dL Albumin 4.0 (3.5-5.0) g/dL Influenza Type A (PCR) (Negative) Influenza Type B (PCR) (Negative) RSV RNA Qual (PCR) (Negative) SARS-CoV-2 RNA (RT-PCR) (Negative) 12/24/22 12/24/22 Range/Units 08:48 08:48 WBC (4.8-10.8) X10*3/uL RBC (4.60-5.80) X10*6/uL Hgb (14.0-18.0) g/dl Hct (42.0-52.0) % MCV (80.0-98.0) fL MCH (27.0-33.0) pg MCHC (31.0-36.0) g/dl RDW (11.0-16.0) % Plt Count (160-400) X10*3/uL MPV (9.4-12.4) fL Immature Gran % (Auto) (0.0-0.4) % Neut % (Auto) (45-73) % Lymph % (Auto) (20-40) % [place] % (Auto) (2-11) % Eos % (Auto) (0-4) % Baso % (Auto) (0-2) % Lymph # (Auto) (1.2-4.9) X10*3/uL [place] # (Auto) (0.1-1.2) X10*3/uL Eos # (Auto) (0.0-0.4) X10*3/uL Baso # (Auto) (0.0-0.2) X10*3/uL Abs Immat Gran (auto) (0.00-0.03) X10*3/uL Absolute Neuts (auto) (2.0-8.3) x10*3/uL Absolute Nucleated RBC (0.0-0.012) X10*3/uL Nucleated RBC % (auto) (0.0-0.2) /100WBC Sodium (135-145) mmol/L Potassium (3.3-5.1) mmol/L Chloride (96-108) mmol/L Carbon Dioxide (22-29) mmol/L Anion Gap (12-20) BUN (9-16) mg/dL Creatinine (0.5-1.4) mg/dL Estim Creat Clear Calc Estimated GFR Random Glucose (60-115) mg/dL Lactic Acid (0.5-2.0) mmol/L Calcium (8.4-10.2) mg/dL Magnesium (1.6-2.6) mg/dL Total Bilirubin (0.0-1.0) mg/dL AST (5-37) U/L ALT (0-40) U/L Alkaline Phosphatase (39-117) U/L Troponin I High Sens 13.9 (<3.5-35.0) ng/L Total Protein (6.5-8.0) g/dL Albumin (3.5-5.0) g/dL Influenza Type A (PCR) POSITIVE A (Negative) Influenza Type B (PCR) NEGATIVE (Negative) RSV RNA Qual (PCR) NEGATIVE (Negative) SARS-CoV-2 RNA (RT-PCR) NEGATIVE (Negative) Radiology Impression Discussion of test interpretation with radiology: I have reviewed the radiologist's reading. Radiologist Impression: EXAMINATION: XR CHEST CLINICAL INFORMATION: Weakness. Shortness of breath. COMPARISON: Chest done on 08/10/2020. TECHNIQUE: Frontal view of the chest was obtained. FINDINGS: No significant abnormality is noted involving the heart, lungs, mediastinum, bony thorax or soft tissues. XR/XR chest 1V IMPRESSION: No radiographic evidence of acute cardiopulmonary disease. Dictated By: David Joaquin MD Signed By: Electronically signed by David Joaquin MD 04/14/22 0934 Independent Historian Clinical information obtained from an independent historian. History obtained from or confirmed by: Spouse Discharge Plan Discharge Clinical Impression: Influenza Patient Disposition: Home, Self-Care Instructions: Influenza (ED) Additional Instructions: Follow up with your primary care provider. Return to the emergency department immediately if your symptoms worsen or if you develop any dizziness, shortness of breath, difficulty breathing, chest pain, blurry vision, loss of vision, nausea, vomiting, abdominal pain, fever, chills, back pain, or any other complaints. Prescriptions: No Action metformin 500 mg tablet 500 mg PO BID allopurinol 100 mg tablet 100 mg PO BID lisinopril 10 mg tablet 10 mg PO DAILY omeprazole 20 mg capsule,delayed release(DR/EC) 20 mg PO DAILY esomeprazole magnesium 20 mg capsule,delayed release(DR/EC) 20 mg PO DAILY Referrals: Yoni Avila MD [Primary Care Provider] - Interventions: ED Discharge Assessment Last Done: 04/14/22 10:50 Discharge Date/Time: 04/14/22 11:29 Print Language: Yoruba
[2022-04-14 08:33] VITALS: BP 106/53; BP 137/53; PULSE 83; PULSE 90; RESP 20; TEMP 36.9; O2SAT 95; O2SAT 97; BMI 34.5
--- NOTE | 2022-04-14 08:37 | ECG_ITS ---
Test Reason : FALL Blood Pressure : / mmHG Vent. Rate : 084 BPM Atrial Rate : 000 BPM P-R Int : 000 ms QRS Dur : 126 ms QT Int : 380 ms P-R-T Axes : 000 019 021 degrees QTc Int : 449 ms Atrial fibrillation Right bundle branch block Abnormal ECG When compared with ECG of 10-AUG-2020 05:08, Atrial fibrillation has replaced Sinus rhythm Criteria for Inferior infarct are no longer Present Referred By: Shayy Savage Electronically Signed By:Dejon Tyler
[2022-04-14 08:52] LABS: MANUAL DIFF FLAG NO
[2022-04-14 08:54] LABS: Basophils Percent Auto 0.4 % (0-2); Eosinophils Absolute Auto 0.1 X10*3/uL (0.0-0.4); Eosinophils Percent Auto 0.7 % (0-4); Hematocrit 36.7 % (42.0-52.0); Hemoglobin 11.9 g/dl (14.0-18.0); Imm Gran Abs Auto 0.01 X10*3/uL (0.00-0.03); Imm Gran Pct Auto 0.1 % (0.0-0.4); Lymphocytes Absolute Auto 0.5 X10*3/uL (1.2-4.9); Lymphocytes Percent Auto 7.3 % (20-40); Mean Corpuscular HGB Conc 32.4 g/dl (31.0-36.0); Mean Corpuscular Hemoglobin 30.4 pg (27.0-33.0); Mean Corpuscular Volume 93.6 fL (80.0-98.0); Mean Platelet Volume 8.6 fL (9.4-12.4); Monocytes Absolute Auto 0.7 X10*3/uL (0.1-1.2); Monocytes Percent Auto 10.6 % (2-11); Neutrophils Absolute Auto 5.6 x10*3/uL (2.0-8.3); Neutrophils Percent Auto 80.9 % (45-73); Platelet Count 306 X10*3/uL (160-400); Red Blood Count 3.92 X10*6/uL (4.60-5.80); Red Cell Distribution Width 13.6 % (11.0-16.0); White Blood Count 6.9 X10*3/uL (4.8-10.8)
[2022-04-14 09:12] LABS: Alanine Aminotransferase 19 U/L (0-40); Alkaline Phosphatase 138 U/L (39-117); Anion Gap 12 (12-20); Aspartate Amino Transferase 19 U/L (5-37); Bilirubin Total 0.3 mg/dL (0.0-1.0); Blood Urea Nitrogen 24 mg/dL (9-16); Carbon Dioxide 25 mmol/L (22-29); Chloride 105 mmol/L (96-108); Creatinine Clr Calc Pharmacy 42.4; Estimated Glomerular Filt Rate 37; Glucose Random 121 mg/dL (60-115); Magnesium 1.8 mg/dL (1.6-2.6); Potassium 4.6 mmol/L (3.3-5.1); Sodium 137 mmol/L (135-145); Total Protein 6.9 g/dL (6.5-8.0)
--- NOTE | 2022-04-14 09:13 | PC.NURSE ---
pt stated to t/w, if you touch my bump again, I's going to lay you out llike a rug pt has a small lump noted to L forearm, reports to t/w that he has never seen a dr about it. reports it is sometimes painful
[2022-04-14 09:17] LABS: Lactic Acid 1.2 mmol/L (0.5-2.0)
[2022-04-14 09:19] LABS: Troponin-I High Sensitivity 13.9 ng/L (<3.5-35.0)
[2022-04-14 09:55] LABS: Influenza A PCR POSITIVE (Negative); Influenza B PCR NEGATIVE (Negative); Resp Syncy Virus RNA Qual PCR NEGATIVE (Negative); SARS COV2 PCR INHOUSE NEGATIVE (Negative)
--- NOTE | 2022-04-14 10:37 | PC.NURSE ---
pt ambulated with steady gait and standby assist. pt reports he periodically uses a cane at home. plan for d/c
== END 2022-04-14 11:29 | disposition home or self-care (01) ==
PROVIDERS: Physician Assistant Medical; Emergency Provider Student in an Organized Health Care Education/Training Program; PCP Internal Medicine
DX: J11.1 Influenza due to unidentified influenza virus with other respiratory manifestations (principal); R53.1 Weakness; Z20.822 Contact with and (suspected) exposure to COVID-19; E11.9 Type 2 diabetes mellitus without complications; I10 Essential (primary) hypertension; E66.9 Obesity, unspecified; Z68.34 Body mass index [BMI] 34.0-34.9, adult
CPT/HCPCS: 0241U; 71045; 80053; 83605; 83735; 84484; 85025; 87040; 93005; 96360; 99284

== ENCOUNTER 2022-10-17 23:58 | Emergency (ER) | payer OTHER, SELFPAY ==
--- NOTE | ~2022-10-17 | XR_ITS ---
EXAMINATION: XR CHEST CLINICAL INFORMATION: Chest pain COMPARISON: 04/14/2022 TECHNIQUE: Frontal view of the chest was obtained. FINDINGS: Lung volumes are symmetric. No focal consolidation is seen. No evidence of pneumothorax, pleural effusion, or pulmonary edema. The cardiomediastinal contour is unremarkable. No acute osseous findings are seen. XR/XR chest 1V IMPRESSION: No acute cardiopulmonary findings.
--- NOTE | 2022-10-18 00:01 | ECG_ITS ---
Test Reason : CP Blood Pressure : / mmHG Vent. Rate : 073 BPM Atrial Rate : 073 BPM P-R Int : 224 ms QRS Dur : 132 ms QT Int : 392 ms P-R-T Axes : 052 -10 037 degrees QTc Int : 431 ms Sinus rhythm with 1st degree A-V block Right bundle branch block Abnormal ECG When compared with ECG of 14-APR-2022 09:09, Sinus rhythm has replaced Atrial fibrillation Referred By: Shanika Matias Electronically Signed By:Dejon Tyler
[2022-10-18 00:06] VITALS: BP 143/51; PULSE 69; RESP 13; TEMP 36.6; O2SAT 97; BMI 38.8
--- NOTE | 2022-10-18 00:11 | ED.CHESTPAIN ---
HPI - Chest Pain General Chief Complaint: Chest Pain Stated Complaint: CP Time Seen by Provider: 10/18/22 00:01 Source: patient and family () Mode of arrival: ambulatory History of Present Illness HPI narrative: 82-year-old male with history of diabetes, hypertension, ANNA who comes in with onset of intermittent chest pain that has been ongoing for an hour but has not been associated with any dizziness, headache, diaphoresis, shortness of breath, nausea and states that makes it better or worse and he denies any recent fever, chills, new cough, GI or symptoms Related Data Home Medications Medication Instructions Recorded Confirmed allopurinol 100 mg tablet 100 mg PO BID 08/10/20 08/10/20 lisinopril 10 mg tablet 10 mg PO DAILY 08/10/20 08/10/20 metformin 500 mg tablet 500 mg PO BID 08/10/20 08/10/20 omeprazole 20 mg capsule,delayed 20 mg PO DAILY 08/10/20 08/10/20 release esomeprazole magnesium 20 mg 20 mg PO DAILY 08/29/20 capsule,delayed release Allergies Allergy/AdvReac Type Severity Reaction Status Date / Time acetaminophen [Percocet] Allergy Unknown vomiting Verified 10/18/22 00:12 cortisone [CORTISONE] Allergy Unknown SWELLING Verified 10/18/22 00:12 nitroglycerin [NITROGLYCERIN] Allergy Unknown LOW BP AND Verified 10/18/22 00:12 PASSED OUT, STATES NEEDED CPR oxycodone [OXYCODONE] AdvReac Intermediate NAUSEA & Verified 10/18/22 00:12 VOMITING indomethacin [From INDOCIN] AdvReac Mild STOMACH Verified 10/18/22 00:12 UPSET Review of Systems Review of Systems: Pertinent positives and negatives as stated in HPI [facility] Past Medical History Source: nursing notes reviewed Medical History Arthritis Diabetes GERD (gastroesophageal reflux disease) Gout Hypertension Nocturnal hypoxemia Obesity (BMI 30-39.9) ANNA (obstructive sleep apnea) Social History Social History Advance Directives: No Advance Directives Information Provided: No Physical Exam Vital Signs: Vital Signs: Last Vital Signs Temp 97.9 F 10/18/22 00:06 Pulse 81 10/18/22 01:10 Resp 18 10/18/22 01:10 BP 135/56 L 10/18/22 01:10 Pulse Ox 97 10/18/22 00:06 O2 Del Method Room Air 10/18/22 00:06 BMI result Body Mass Index 38.8 VITAL SIGNS: Reviewed. GENERAL: Well developed, well nourished, in no acute distress. HEAD: Normocephalic/atraumatic EYES: PERRLA, EOMI EARS: Ext canals without abnormality NOSE: Nares patent bilateral OROPHARYNX: no oral lesions noted, posterior pharynx clear NECK: Supple, no adenopathy LUNGS: Normal breath sounds. No adventitious sounds or accessory muscle use; CHEST WALL: Reproducible at lower left sternal border CARDIOVASCULAR: Regular rate and rhythm without noted murmurs, no JVD or lower extremity edema. ABDOMEN: Soft, non-tender, non-distended with bowel sounds. MUSCULOSKELETAL: No tenderness, deformities, or effusions noted on gross inspection. EXTREMITIES: No cyanosis, clubbing or edema. SKIN: Inspection of the skin reveals no rashes NEUROLOGIC: Alert and oriented x 4. Strength and sensation to light touch were grossly intact x 4. Medications Administered Discontinued Medications Generic Name Dose Route Start Last Admin Trade Name Freq PRN Reason Stop Dose Admin Aspirin 324 mg 10/18/22 00:09 10/18/22 00:53 Aspirin 81 Mg Tab.Chew PO 10/18/22 00:10 324 mg ONCE ONE Administration Sucralfate 1 gm 10/18/22 00:11 10/18/22 00:24 Sucralfate Oral Suspension 1 Gm/10 Ml Oral.Susp PO 10/18/22 00:12 1 gm ONCE ONE Administration Medical Decision Making Medical Decision Making MDM Narrative: 82-year-old male with presentation for chest pain. Patient received 324 mg of aspirin. HEART Score: 6/7 After review of all investigations, there is no evidence of leukocytosis or left shift and patient has chronically stable anemia. Chemistry is demonstrates chronically stable CKD with somewhat flat troponins at 5.3/6.6. Otherwise, no derangements of LFTs. The most concerning issue for me is that although on re-evaluation patient states he is feeling mildly better after receiving aspirin the intermittent pain that he has been experiencing that would last for less than 5 minutes and now lasted more than at our I feel is more anginal in nature and I strongly recommended that he be admitted for further ACS evaluation especially given heart score. However, despite discussing risks and benefits with the patient extensively he is declining admission and states that he will follow-up with his primary care provider, Dr. Avila, in the morning. Patient is alert and oriented x4. Differential Diagnosis ACS, infection, cholecystitis, gastritis, pancreatitis Admission/Observation Consideration of admission/observation: Escalation of care including admission/observation considered Lab Data Please see the discussion above 10/18/22 00:13 10/18/22 00:13 Labs: Lab Results 10/18/22 10/18/22 10/18/22 Range/Units 00:13 00:13 00:13 WBC 7.5 (4.8-10.8) X10*3/uL RBC 3.50 L (4.60-5.80) X10*6/uL Hgb 10.8 L (14.0-18.0) g/dl Hct 32.9 L (42.0-52.0) % MCV 94.0 (80.0-98.0) fL MCH 30.9 (27.0-33.0) pg MCHC 32.8 (31.0-36.0) g/dl RDW 13.3 (11.0-16.0) % Plt Count 293 (160-400) X10*3/uL MPV 9.0 L (9.4-12.4) fL Immature Gran % (Auto) 0.3 (0.0-0.4) % Neut % (Auto) 44.8 L (45-73) % Lymph % (Auto) 37.7 (20-40) % [place] % (Auto) 10.0 (2-11) % Eos % (Auto) 6.4 H (0-4) % Baso % (Auto) 0.8 (0-2) % Lymph # (Auto) 2.8 (1.2-4.9) X10*3/uL [place] # (Auto) 0.8 (0.1-1.2) X10*3/uL Eos # (Auto) 0.5 H (0.0-0.4) X10*3/uL Baso # (Auto) 0.1 (0.0-0.2) X10*3/uL Abs Immat Gran (auto) 0.02 (0.00-0.03) X10*3/uL Absolute Neuts (auto) 3.4 (2.0-8.3) x10*3/uL Absolute Nucleated RBC 0.000 (0.0-0.012) X10*3/uL Nucleated RBC % (auto) 0.0 (0.0-0.2) /100WBC PT 10.8 (10.0-13.1) SEC INR 0.9 (0.9-1.1) VBG pH (7.32-7.43) VBG pCO2 mmHg VBG pO2 mmHg VBG HCO3 (22-26) mmol/L VBG O2 Saturation % VBG Base Excess mmol/L Sodium 139 (135-145) mmol/L Potassium 4.8 (3.3-5.1) mmol/L Chloride 107 (96-108) mmol/L Carbon Dioxide 24 (22-29) mmol/L Anion Gap 13 (12-20) BUN 34 H (9-16) mg/dL Creatinine 1.58 H (0.5-1.4) mg/dL Estim Creat Clear Calc 45.9 Estimated GFR 42 Random Glucose 100 (60-115) mg/dL Calcium 9.7 D (8.4-10.2) mg/dL Total Bilirubin 0.2 (0.0-1.0) mg/dL AST 20 (5-37) U/L ALT 18 (0-40) U/L Alkaline Phosphatase 112 (39-117) U/L Troponin I High Sens (<3.5-35.0) ng/L Total Protein 6.9 (6.5-8.0) g/dL Albumin 3.8 (3.5-5.0) g/dL 10/18/22 10/18/22 10/18/22 Range/Units 00:13 00:18 01:28 WBC (4.8-10.8) X10*3/uL RBC (4.60-5.80) X10*6/uL Hgb (14.0-18.0) g/dl Hct (42.0-52.0) % MCV (80.0-98.0) fL MCH (27.0-33.0) pg MCHC (31.0-36.0) g/dl RDW (11.0-16.0) % Plt Count (160-400) X10*3/uL MPV (9.4-12.4) fL Immature Gran % (Auto) (0.0-0.4) % Neut % (Auto) (45-73) % Lymph % (Auto) (20-40) % [place] % (Auto) (2-11) % Eos % (Auto) (0-4) % Baso % (Auto) (0-2) % Lymph # (Auto) (1.2-4.9) X10*3/uL [place] # (Auto) (0.1-1.2) X10*3/uL Eos # (Auto) (0.0-0.4) X10*3/uL Baso # (Auto) (0.0-0.2) X10*3/uL Abs Immat Gran (auto) (0.00-0.03) X10*3/uL Absolute Neuts (auto) (2.0-8.3) x10*3/uL Absolute Nucleated RBC (0.0-0.012) X10*3/uL Nucleated RBC % (auto) (0.0-0.2) /100WBC PT (10.0-13.1) SEC INR (0.9-1.1) VBG pH 7.41 (7.32-7.43) VBG pCO2 43 mmHg VBG pO2 44 mmHg VBG HCO3 28 H (22-26) mmol/L VBG O2 Saturation 76.0 % VBG Base Excess 3.2 mmol/L Sodium (135-145) mmol/L Potassium (3.3-5.1) mmol/L Chloride (96-108) mmol/L Carbon Dioxide (22-29) mmol/L Anion Gap (12-20) BUN (9-16) mg/dL Creatinine (0.5-1.4) mg/dL Estim Creat Clear Calc Estimated GFR Random Glucose (60-115) mg/dL Calcium (8.4-10.2) mg/dL Total Bilirubin (0.0-1.0) mg/dL AST (5-37) U/L ALT (0-40) U/L Alkaline Phosphatase (39-117) U/L Troponin I High Sens 5.3 D 6.6 (<3.5-35.0) ng/L Total Protein (6.5-8.0) g/dL Albumin (3.5-5.0) g/dL Independent Interpretation I performed an independent interpretation of an: EKG Interpretation: Sinus rhythm, RBBB, HR-73, QTC within normal limits Radiology Impression Radiologist Impression: No pneumonia, otherwise my interpretation is in agreement with radiology's impression. External Record Review External record reviewed: Prior outpatient labs Chronic Conditions Patient?s care impacted by: Diabetes and Hypertension Critical Care Time Critical Care Time Critical Care Time: Yes Total Critical Care Time: 30 Attestation: I personally attest to this time spent taking care of the patient. Discharge Plan Discharge Clinical Impression: ACS (acute coronary syndrome) Patient Disposition: Home, Self-Care Instructions: Acute Coronary Syndrome (ED) Additional Instructions: 1. Resume all home medications. 2. Follow-up with your primary care provider in the morning. Return to the ER for any worsening symptoms. Prescriptions: No Action metformin 500 mg tablet 500 mg PO BID allopurinol 100 mg tablet 100 mg PO BID lisinopril 10 mg tablet 10 mg PO DAILY omeprazole 20 mg capsule,delayed release(DR/EC) 20 mg PO DAILY esomeprazole magnesium 20 mg capsule,delayed release(DR/EC) 20 mg PO DAILY Referrals: Yoni Avila MD [Primary Care Provider] - Stand Alone Forms: Against Medical Advice
[2022-10-18 00:21] LABS: Basophils Absolute Auto 0.1 X10*3/uL (0.0-0.2); Basophils Percent Auto 0.8 % (0-2); Eosinophils Absolute Auto 0.5 X10*3/uL (0.0-0.4); Eosinophils Percent Auto 6.4 % (0-4); Hematocrit 32.9 % (42.0-52.0); Hemoglobin 10.8 g/dl (14.0-18.0); Imm Gran Abs Auto 0.02 X10*3/uL (0.00-0.03); Imm Gran Pct Auto 0.3 % (0.0-0.4); Lymphocytes Absolute Auto 2.8 X10*3/uL (1.2-4.9); Lymphocytes Percent Auto 37.7 % (20-40); MANUAL DIFF FLAG NO; Mean Corpuscular HGB Conc 32.8 g/dl (31.0-36.0); Mean Corpuscular Hemoglobin 30.9 pg (27.0-33.0); Monocytes Absolute Auto 0.8 X10*3/uL (0.1-1.2); Neutrophils Absolute Auto 3.4 x10*3/uL (2.0-8.3); Neutrophils Percent Auto 44.8 % (45-73); Platelet Count 293 X10*3/uL (160-400); Red Cell Distribution Width 13.3 % (11.0-16.0); White Blood Count 7.5 X10*3/uL (4.8-10.8)
[2022-10-18] MEDS: Sucralfate Oral Suspension 1 GM/10 ML ORAL.SUSP PO (00:24)
[2022-10-18 00:25] LABS: VBG Base Excess 3.2 mmol/L; VBG HCO3 28 mmol/L (22-26); VBG pCO2 43 mmHg; VBG pH 7.41 (7.32-7.43); VBG pO2 44 mmHg
[2022-10-18 00:25] LABS: Venous Blood Gas Refer to POC result
[2022-10-18 00:26] LABS: INTERNATIONAL NORM RATIO 0.9 (0.9-1.1); Prothrombin Time 10.8 SEC (10.0-13.1)
[2022-10-18 00:35] LABS: Alanine Aminotransferase 18 U/L (0-40); Albumin Level 3.8 g/dL (3.5-5.0); Alkaline Phosphatase 112 U/L (39-117); Anion Gap 13 (12-20); Aspartate Amino Transferase 20 U/L (5-37); Bilirubin Total 0.2 mg/dL (0.0-1.0); Blood Urea Nitrogen 34 mg/dL (9-16); Calcium 9.7 mg/dL (8.4-10.2); Carbon Dioxide 24 mmol/L (22-29); Chloride 107 mmol/L (96-108); Creatinine Clr Calc Pharmacy 45.9; Estimated Glomerular Filt Rate 42; Glucose Random 100 mg/dL (60-115); Potassium 4.8 mmol/L (3.3-5.1); Sodium 139 mmol/L (135-145); Total Protein 6.9 g/dL (6.5-8.0)
[2022-10-18 00:41] LABS: Troponin-I High Sensitivity 5.3 ng/L (<3.5-35.0)
[2022-10-18] MEDS: Aspirin 81 MG TAB.CHEW 324 MG PO (00:53)
[2022-10-18 01:10] VITALS: BP 135/56; PULSE 81; RESP 18
[2022-10-18 01:51] LABS: Troponin-I High Sensitivity 6.6 ng/L (<3.5-35.0)
== END 2022-10-18 02:21 | disposition home or self-care (01) ==
PROVIDERS: Emergency Provider Student in an Organized Health Care Education/Training Program; PCP Internal Medicine
DX: I24.9 Acute ischemic heart disease, unspecified (principal); R07.89 Other chest pain; Z79.899 Other long term (current) drug therapy
CPT/HCPCS: 36415; 71045; 80053; 82803; 84484; 85025; 85610; 93005; 99283; 99285

== ENCOUNTER 2022-12-29 07:03 | Outpatient (REF) | payer OTHER, SELFPAY ==
[2022-12-29 07:15] LABS: MANUAL DIFF FLAG NO
[2022-12-29 07:39] LABS: Basophils Absolute Auto 0.1 X10*3/uL (0.0-0.2); Eosinophils Absolute Auto 0.4 X10*3/uL (0.0-0.4); Eosinophils Percent Auto 5.5 % (0-4); Hematocrit 34.6 % (42.0-52.0); Hemoglobin 11.3 g/dl (14.0-18.0); Imm Gran Abs Auto 0.02 X10*3/uL (0.00-0.03); Imm Gran Pct Auto 0.2 % (0.0-0.4); Lymphocytes Absolute Auto 2.6 X10*3/uL (1.2-4.9); Lymphocytes Percent Auto 32.2 % (20-40); Mean Corpuscular HGB Conc 32.7 g/dl (31.0-36.0); Mean Corpuscular Hemoglobin 31.4 pg (27.0-33.0); Mean Corpuscular Volume 96.1 fL (80.0-98.0); Mean Platelet Volume 9.1 fL (9.4-12.4); Monocytes Absolute Auto 0.8 X10*3/uL (0.1-1.2); Monocytes Percent Auto 9.9 % (2-11); Neutrophils Absolute Auto 4.1 x10*3/uL (2.0-8.3); Neutrophils Percent Auto 51.2 % (45-73); Platelet Count 333 X10*3/uL (160-400); White Blood Count 8.1 X10*3/uL (4.8-10.8)
[2022-12-29 07:53] LABS: Estimated Average Glucose 114 mg/dL; Hemoglobin A1c % 5.6 % (<6.0)
[2022-12-29 08:02] LABS: Alanine Aminotransferase 18 U/L (0-40); Albumin Level 3.9 g/dL (3.5-5.0); Alkaline Phosphatase 120 U/L (39-117); Anion Gap 11 (12-20); Aspartate Amino Transferase 17 U/L (5-37); Bilirubin Total 0.2 mg/dL (0.0-1.0); Blood Urea Nitrogen 32 mg/dL (9-16); Calcium 9.7 mg/dL (8.4-10.2); Carbon Dioxide 26 mmol/L (22-29); Chloride 107 mmol/L (96-108); Estimated Glomerular Filt Rate 43; Glucose Random 97 mg/dL (60-115); Iron 78 mcg/dL (45-160); Percent Iron Saturation 31 % (15-50); Potassium 4.6 mmol/L (3.3-5.1); Sodium 139 mmol/L (135-145); Total Iron Binding Capacity 253 mcg/dL (228-428); Total Protein 6.9 g/dL (6.5-8.0); Unsaturated Iron Binding 175 ug/dL; Uric Acid 5.2 mg/dL (3.4-7.0)
== END 2022-12-29 07:04 | disposition home or self-care (01) ==
LOC: HO.LAB 07:03
PROVIDERS: PCP Internal Medicine; Visit Provider Internal Medicine
DX: I12.9 Hypertensive chronic kidney disease with stage 1 through stage 4 chronic kidney disease, or unspecified chronic kidney disease (principal); E11.22 Type 2 diabetes mellitus with diabetic chronic kidney disease; N18.9 Chronic kidney disease, unspecified; D64.9 Anemia, unspecified; M10.9 Gout, unspecified
CPT/HCPCS: 36415; 80053; 83036; 83540; 84550; 85025

== ENCOUNTER 2023-01-16 10:11 | Outpatient (REF) | payer OTHER, SELFPAY ==
--- NOTE | ~2023-01-16 | US_ITS ---
EXAMINATION: US EXTRACRANIAL CAROTID DUPLEX, BILATERAL CLINICAL INFORMATION: History of TIA COMPARISON: None available. TECHNIQUE: Real-time ultrasound and Doppler techniques (integrating B-mode 2-D vascular images, Doppler spectral analysis and color-flow Doppler imaging) were utilized to interrogate the extracranial carotid arteries, the vertebral arteries and proximal subclavian arteries bilaterally. The degree of stenosis is determined by criteria similar to NASCET. FINDINGS: Right Side: 1. There is no atherosclerotic plaque seen in the bifurcation/proximal ICA region. 2. The common carotid artery PSV proximally is 121 cm/s and distally 109 cm/s. 3. The proximal internal carotid artery velocities are 84 cm/s systolic and 13 cm/s diastolic. 4. The proximal external carotid artery PSV is 95 cm/s. 5. The vertebral artery shows antegrade flow. 6. The subclavian artery waveforms are normal. Left Side: 1. There is mild atherosclerotic plaque seen in the bifurcation/proximal ICA region. 2. The common carotid artery PSV proximally is 115 cm/s and distally 92 cm/s. 3. The proximal internal carotid artery velocities are 75 cm/s systolic and 22 cm/s diastolic. 4. The proximal external carotid artery PSV is 72 cm/s. 5. The vertebral artery shows antegrade flow. 6. The subclavian artery waveforms are normal. US/US carotid duplex BI IMPRESSION: 1. RIGHT: Normal right internal carotid artery without atherosclerotic plaque or hemodynamically significant stenosis. 2. LEFT: Minimal, non-hemodynamically significant stenosis of the proximal left internal carotid artery corresponding to a 0-49% stenosis by velocity criteria.
== END 2023-01-16 10:12 | disposition home or self-care (01) ==
LOC: HO.US 10:11
PROVIDERS: PCP Internal Medicine; Visit Provider Internal Medicine
DX: Z86.73 Personal history of transient ischemic attack (TIA), and cerebral infarction without residual deficits (principal)
CPT/HCPCS: 93880

== ENCOUNTER 2023-05-06 15:43 | Emergency (ER) | payer OTHER, SELFPAY ==
--- NOTE | ~2023-05-06 | XR_ITS ---
EXAMINATION: XR ELBOW, LEFT CLINICAL INFORMATION: Trauma. COMPARISON: None available. TECHNIQUE: AP, lateral, and oblique views of the left elbow. FINDINGS: Bone alignment is normal. No fracture or dislocation. Small osteophyte at the coronoid process. Joint spaces are otherwise normal. Small joint effusion. Small osteophyte at the triceps tendon insertion to the olecranon. XR/XR elbow LT 2V IMPRESSION: No fracture seen. Small elbow joint effusion. Possible occult fracture should be considered. Follow-up x-ray in one week recommended if clinically indicated.
--- NOTE | ~2023-05-06 | XR_ITS ---
EXAMINATION: XR CHEST CLINICAL INFORMATION: Covid infection. Hypoxia. COMPARISON: Previous chest x-ray September 2022 TECHNIQUE: Frontal view of the chest was obtained. FINDINGS: No significant abnormality is noted involving the heart, lungs, mediastinum, bony thorax or soft tissues. XR/XR chest 1V IMPRESSION: Unremarkable examination.
[2023-05-06 15:51] VITALS: BP 104/52; BP 138/76; PULSE 78; PULSE 86; RESP 24; TEMP 37.9; O2SAT 91; O2SAT 94; BMI 37.0
[2023-05-06 15:57] VITALS: O2SAT 95
[2023-05-06 16:15] LABS: MANUAL DIFF FLAG NO
[2023-05-06 16:18] LABS: Basophils Percent Auto 0.5 % (0-2); Eosinophils Absolute Auto 0.1 X10*3/uL (0.0-0.4); Eosinophils Percent Auto 1.6 % (0-4); Hemoglobin 10.8 g/dl (14.0-18.0); Imm Gran Abs Auto 0.02 X10*3/uL (0.00-0.03); Imm Gran Pct Auto 0.2 % (0.0-0.4); Lymphocytes Absolute Auto 0.9 X10*3/uL (1.2-4.9); Lymphocytes Percent Auto 10.7 % (20-40); Mean Corpuscular HGB Conc 32.7 g/dl (31.0-36.0); Mean Corpuscular Hemoglobin 30.8 pg (27.0-33.0); Monocytes Absolute Auto 0.8 X10*3/uL (0.1-1.2); Monocytes Percent Auto 9.7 % (2-11); Neutrophils Absolute Auto 6.3 x10*3/uL (2.0-8.3); Neutrophils Percent Auto 77.3 % (45-73); Platelet Count 286 X10*3/uL (160-400); Red Blood Count 3.51 X10*6/uL (4.60-5.80); Red Cell Distribution Width 13.6 % (11.0-16.0); White Blood Count 8.1 X10*3/uL (4.8-10.8)
--- NOTE | 2023-05-06 16:19 | ED_ITS ---
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 He lives at home with his . He has a former smoker. He quit smoking 40 years ago. Unwell yesterday with a headache, sore throat, and cough. Today he felt worse and very weak. He had a home COVID test that was positive. He says that at 1 point he was so weak that he lowered himself to the floor when he was on the toilet. He was afraid he was going to fall off the toilet. He apparently scraped his left elbow when he was trying to get up off the floor and sustained some slight skin tears to the region of the left elbow. Ultimately his family called 911 because he seemed so weak. Paramedics found the patient with an oxygen saturation of 89% on room air and he was brought to the hospital. He denies a history of COPD and says he does not ordinarily use inhalers of any kind. He denies any history of heart attack or stroke. Related Data Home Medications Medication Instructions Recorded Confirmed allopurinol 100 mg tablet 100 mg PO BID 08/10/20 08/10/20 lisinopril 10 mg tablet 10 mg PO DAILY 08/10/20 08/10/20 metformin 500 mg tablet 500 mg PO BID 08/10/20 08/10/20 omeprazole 20 mg capsule,delayed 20 mg PO DAILY 08/10/20 08/10/20 release esomeprazole magnesium 20 mg 20 mg PO DAILY 08/29/20 capsule,delayed release Allergies Allergy/AdvReac Type Severity Reaction Status Date / Time acetaminophen [Percocet] Allergy Unknown vomiting Verified 02/12/23 12:21 cortisone [CORTISONE] Allergy Unknown SWELLING Verified 02/12/23 12:21 nitroglycerin [NITROGLYCERIN] Allergy Unknown LOW BP AND Verified 02/12/23 12:21 PASSED OUT, STATES NEEDED CPR oxycodone [OXYCODONE] AdvReac Intermediate NAUSEA & Verified 02/12/23 12:21 VOMITING indomethacin [From INDOCIN] AdvReac Mild STOMACH Verified 02/12/23 12:21 UPSET Review of Systems 2 Review of Systems: Yes all other systems are reviewed and are negative [facility] Past Medical History Onset Date is defined in the Problem List Problems that require an onset date and time if occurred within 24 hrs of arrival to the ED Aortic Dissection and Rupture; Neurologic impairment; Cardiopulmonary Arrest; Endotracheal Intubation; Insertion or Replacement of Mechanical Circulatory Assist Device Medical History Arthritis Diabetes GERD (gastroesophageal reflux disease) Gout Hypertension Nocturnal hypoxemia Obesity (BMI 30-39.9) ANNA (obstructive sleep apnea) Social History Social History (System 02/12/23 @ 12:21 by Jovita Watkins) Smoked in Last 30 Days: No Advance Directives: No Advance Directives Information Provided: No Physical Exam ED Vital Signs: Vital Signs - 24 hr 05/06/23 15:51 05/06/23 15:57 05/06/23 18:04 Temperature 100.3 F 98.7 F Pulse Rate 78 75 Respiratory Rate 24 H 17 Blood Pressure 104/52 L 106/44 L Pulse Oximetry 91 L 95 93 Oxygen Delivery Method Room Air Nasal Cannula Room Air Oxygen Flow Rate 3 05/06/23 18:16 05/06/23 20:24 05/06/23 20:24 Temperature 98.3 F Pulse Rate 78 81 Respiratory Rate 17 16 Blood Pressure 120/49 L Pulse Oximetry 97 99 Oxygen Delivery Method Room Air Room Air Oxygen Flow Rate BMI result Body Mass Index 37.0 Const Other: The patient is a large older man who is lying on the stretcher with his eyes closed. He is awake and answers questions but he seems generally weak and worn out. He does not seem in obvious pain or respiratory distress however. HENMT Other: The face is symmetrical. ?Mucous membranes moist. Eyes Other: Pupils are round equal, conjunctivae are clear, extraocular movements intact Neck Neck: Yes no lymphadenopathy and Yes no JVD Resp Other: No increased work of breathing. Diminished air entry bilaterally without nissa wheezes or crackles. Cardio Rate: regular rate Rhythm: regular rhythm Heart sounds: S1 normal heart sound present and S2 normal heart sound present GI Other: Abdomen is soft and nontender Skin Other: Skin is pale and dry Neuro Other: The patient is awake and alert. GCS is 15 this is symmetrical. Speech is clear. He moves his extremities symmetrically. He seemed somewhat diffusely weak but had a nonfocal exam. Extrem Other: No peripheral edema. No calf swelling or tenderness. No asymmetry. Medications Administered Discontinued Medications Generic Name Dose Route Start Last Admin Trade Name Susan PRN Reason Stop Dose Admin Acetaminophen 975 mg 05/06/23 16:53 05/06/23 17:01 Acetaminophen 325 Mg Tablet PO 05/06/23 16:54 975 mg ONCE ONE Administration Albuterol Sulfate 4 puff 05/06/23 17:53 05/06/23 18:06 Albuterol Sulfate 90 Mcg 8 Gm Inhaler INHALE 05/06/23 17:54 4 puff ONCE ONE Administration Sodium Chloride 1,000 mls @ 999 mls/hr 05/06/23 18:00 05/06/23 18:08 Ns IV 05/06/23 19:00 999 mls/hr .Q1H1M ELÍAS Administration Medical Decision Making Medical Decision Making MDM Narrative: The patient has been unwell since yesterday with weakness and body aches. He took a home COVID test that was positive. He contacted his doctor who phoned in a prescription for Paxlovid but he has not yet started this medication. Today he felt very weak on the toilet and let himself down to the floor of the bathroom. He injured the skin of his left elbow somewhat in trying to crawl and get up. Ultimately he was brought to the hospital because he was so weak. He has some skin on the left elbow but no other significant injury to the left elbow. X-ray is negative. The patient was given acetaminophen and IV fluids. Chest x-ray and labs in the emergency room is all very reassuring. He was puffs of albuterol. He was observed for several hours during which time he was saturating well and felt somewhat better than when he arrived. Ultimately he was given a trial of ambulation and seems well enough for discharge. He will start his Paxlovid tomorrow. He will hold his statin medication. Lab Data 05/06/23 16:10 05/06/23 16:10 Labs: Lab Results 05/06/23 05/06/23 05/06/23 Range/Units 16:10 16:11 16:13 WBC 8.1 (4.8-10.8) X10*3/uL RBC 3.51 L (4.60-5.80) X10*6/uL Hgb 10.8 L (14.0-18.0) g/dl Hct 33.0 L (42.0-52.0) % MCV 94.0 (80.0-98.0) fL MCH 30.8 (27.0-33.0) pg MCHC 32.7 (31.0-36.0) g/dl RDW 13.6 (11.0-16.0) % Plt Count 286 (160-400) X10*3/uL MPV 9.0 L (9.4-12.4) fL Immature Gran % (Auto) 0.2 (0.0-0.4) % Neut % (Auto) 77.3 H (45-73) % Lymph % (Auto) 10.7 L (20-40) % [place] % (Auto) 9.7 (2-11) % Eos % (Auto) 1.6 (0-4) % Baso % (Auto) 0.5 (0-2) % Lymph # (Auto) 0.9 L (1.2-4.9) X10*3/uL [place] # (Auto) 0.8 (0.1-1.2) X10*3/uL Eos # (Auto) 0.1 (0.0-0.4) X10*3/uL Baso # (Auto) 0.0 (0.0-0.2) X10*3/uL Abs Immat Gran (auto) 0.02 (0.00-0.03) X10*3/uL Absolute Neuts (auto) 6.3 (2.0-8.3) x10*3/uL Absolute Nucleated RBC 0.000 (0.0-0.012) X10*3/uL Nucleated RBC % (auto) 0.0 (0.0-0.2) /100WBC Sodium 136 (135-145) mmol/L Potassium 4.6 (3.3-5.1) mmol/L Chloride 104 (96-108) mmol/L Carbon Dioxide 20 L (22-29) mmol/L Anion Gap 17 (12-20) BUN 25 H (9-16) mg/dL Creatinine 1.59 H (0.5-1.4) mg/dL Estim Creat Clear Calc 45.1 Estimated GFR 42 Random Glucose 130 H (60-115) mg/dL Calcium 9.1 D (8.4-10.2) mg/dL Total Bilirubin 0.2 (0.0-1.0) mg/dL AST 19 (5-37) U/L ALT 18 (0-40) U/L Alkaline Phosphatase 130 H (39-117) U/L Troponin I High Sens 10.5 D (<3.5-35.0) ng/L C-Reactive Protein 1.95 H (< or = 0.50) mg/dL B-Natriuretic Peptide 64 (<100) pg/mL Total Protein 6.8 (6.5-8.0) g/dL Albumin 3.6 (3.5-5.0) g/dL Influenza Type A (PCR) NEGATIVE (Negative) Influenza Type B (PCR) NEGATIVE (Negative) RSV RNA Qual (PCR) NEGATIVE (Negative) SARS-CoV-2 RNA (RT-PCR) POSITIVE A (Negative) Independent Interpretation I performed an independent interpretation of an: EKG Interpretation: EKG at 18:28 shows sinus rhythm with a first-degree AV block at 83 beats per minute. No change from previous. Discharge Plan Discharge Clinical Impression: COVID, Weakness, Skin tear of left upper extremity Patient Disposition: Home, Self-Care Instructions: Skin Tear (ED), COVID-19 (Coronavirus Disease 2019) (ED) Additional Instructions: Our tests confirm your COVID being positive. Your other tests however are all quite good. Please use acetaminophen (Tylenol) as needed for discomfort. You may take 2 extra-strength acetaminophen (2 x 500 equals 1000 mg) up to 3 times a day. Drink a lot of fluids. Be very careful when moving around. Change positions slowly. Take it easy. Please start your Paxlovid tomorrow as discussed. Stay in touch with your regular doctor. Return to the emergency room if worse Prescriptions: No Action metformin 500 mg tablet 500 mg PO BID allopurinol 100 mg tablet 100 mg PO BID lisinopril 10 mg tablet 10 mg PO DAILY omeprazole 20 mg capsule,delayed release(DR/EC) 20 mg PO DAILY esomeprazole magnesium 20 mg capsule,delayed release(DR/EC) 20 mg PO DAILY Referrals: Yoni Avila MD [Primary Care Provider] - (covid) Interventions: ED Discharge Assessment Last Done: 05/06/23 21:58 Discharge Date/Time: 05/06/23 21:59
--- NOTE | 2023-05-06 16:21 | ECG_ITS ---
Test Reason : WEAKNESS Blood Pressure : / mmHG Vent. Rate : 083 BPM Atrial Rate : 083 BPM P-R Int : 214 ms QRS Dur : 124 ms QT Int : 396 ms P-R-T Axes : 010 -01 026 degrees QTc Int : 465 ms Sinus rhythm with 1st degree A-V block Right bundle branch block Abnormal ECG When compared with ECG of 17-OCT-2022 23:58, No significant change was found Referred By: Louis Shaw Electronically Signed By:SHU VELAZQUZE
[2023-05-06 16:38] LABS: Troponin-I High Sensitivity 10.5 ng/L (<3.5-35.0)
[2023-05-06 16:38] LABS: Alanine Aminotransferase 18 U/L (0-40); Albumin Level 3.6 g/dL (3.5-5.0); Alkaline Phosphatase 130 U/L (39-117); Anion Gap 17 (12-20); Aspartate Amino Transferase 19 U/L (5-37); Bilirubin Total 0.2 mg/dL (0.0-1.0); Blood Urea Nitrogen 25 mg/dL (9-16); Calcium 9.1 mg/dL (8.4-10.2); Carbon Dioxide 20 mmol/L (22-29); Chloride 104 mmol/L (96-108); Creatinine Clr Calc Pharmacy 45.1; Estimated Glomerular Filt Rate 42; Glucose Random 130 mg/dL (60-115); Potassium 4.6 mmol/L (3.3-5.1); Sodium 136 mmol/L (135-145); Total Protein 6.8 g/dL (6.5-8.0)
[2023-05-06] MEDS: Acetaminophen 325 MG TABLET 975 MG PO (17:01)
[2023-05-06 17:07] LABS: Influenza A PCR NEGATIVE (Negative); Influenza B PCR NEGATIVE (Negative); Resp Syncy Virus RNA Qual PCR NEGATIVE (Negative); SARS COV2 PCR INHOUSE POSITIVE (Negative)
[2023-05-06 17:15] LABS: C Reactive Protein 1.95 mg/dL (< or = 0.50)
[2023-05-06 18:04] VITALS: BP 106/44; PULSE 75; RESP 17; TEMP 37.1; O2SAT 93
[2023-05-06] MEDS: Albuterol Sulfate 90 MCG 8 GM INHALER 4 PUFF INHALE (18:06)
[2023-05-06] MEDS: 0.9 % Sodium Chloride 1,000 ML 999 ML IV (18:08)
[2023-05-06 18:16] VITALS: PULSE 78; RESP 17; O2SAT 94
[2023-05-06 19:51] LABS: B Type Natriuretic Peptide 64 pg/mL (<100)
[2023-05-06 20:24] VITALS: BP 120/49; PULSE 81; RESP 16; TEMP 36.8; O2SAT 97; O2SAT 99
--- NOTE | 2023-05-06 21:35 | PC.NURSE ---
Pt able to ambulate successfully and independently down garcia. Feels comfortable with going home. Provider Tor made aware.
== END 2023-05-06 21:59 | disposition home or self-care (01) ==
PROVIDERS: Emergency Provider Emergency Medicine; PCP Internal Medicine
DX: U07.1 COVID-19 (principal); R53.83 Other fatigue; R51.9 Headache, unspecified; M25.522 Pain in left elbow; I45.10 Unspecified right bundle-branch block; R06.02 Shortness of breath; R94.31 Abnormal electrocardiogram [ECG] [EKG]; Z79.899 Other long term (current) drug therapy
CPT/HCPCS: 0241U; 71045; 73070; 80053; 83880; 84484; 85025; 86140; 93005; 94640; 99284; 99285

== ENCOUNTER → 2023-05-06 16:21 | Outpatient (BNV) | payer OTHER, SELFPAY | PROVIDERS: Emergency Provider Emergency Medicine; PCP Internal Medicine; Visit Provider Internal Medicine | DX: I44.0 Atrioventricular block, first degree (principal); I45.10 Unspecified right bundle-branch block | CPT/HCPCS: 93010 ==

== ENCOUNTER 2023-08-21 10:10 | Outpatient (REF) | payer OTHER, SELFPAY ==
[2023-08-21 11:11] LABS: MANUAL DIFF FLAG NO
[2023-08-21 11:16] LABS: Basophils Absolute Auto 0.1 X10*3/uL (0.0-0.2); Basophils Percent Auto 1.1 % (0-2); Eosinophils Absolute Auto 0.6 X10*3/uL (0.0-0.4); Eosinophils Percent Auto 6.7 % (0-4); Hematocrit 35.8 % (42.0-52.0); Hemoglobin 11.7 g/dl (14.0-18.0); Imm Gran Pct Auto 0.4 % (0.0-0.4); Lymphocytes Percent Auto 24.7 % (20-40); Mean Corpuscular HGB Conc 32.7 g/dl (31.0-36.0); Mean Corpuscular Hemoglobin 31.1 pg (27.0-33.0); Mean Corpuscular Volume 95.2 fL (80.0-98.0); Monocytes Percent Auto 10.4 % (2-11); Neutrophils Percent Auto 56.7 % (45-73); Platelet Count 348 X10*3/uL (160-400); Red Blood Count 3.76 X10*6/uL (4.60-5.80); Red Cell Distribution Width 13.4 % (11.0-16.0); White Blood Count 8.2 X10*3/uL (4.8-10.8)
[2023-08-21 11:40] LABS: Alkaline Phosphatase 124 U/L (39-117); Bilirubin Total 0.2 mg/dL (0.0-1.0); Blood Urea Nitrogen 34 mg/dL (9-16); Calcium 9.5 mg/dL (8.4-10.2); Carbon Dioxide 24 mmol/L (22-29); Chloride 106 mmol/L (96-108); Estimated Glomerular Filt Rate 32; Glucose Random 104 mg/dL (60-115); Potassium 5.2 mmol/L (3.3-5.1); Sodium 139 mmol/L (135-145)
== END 2023-08-21 10:11 | disposition home or self-care (01) ==
LOC: HO.10HDL 10:10
PROVIDERS: Visit Provider Internal Medicine
DX: E11.9 Type 2 diabetes mellitus without complications (principal); I10 Essential (primary) hypertension; N18.9 Chronic kidney disease, unspecified; M10.9 Gout, unspecified
CPT/HCPCS: 36415; 80053; 83036; 84550; 85025

== ENCOUNTER 2023-11-13 11:00 | Outpatient (REF) | payer OTHER, SELFPAY ==
[2023-11-13 13:28] LABS: MANUAL DIFF FLAG NO
[2023-11-13 13:33] LABS: Basophils Absolute Auto 0.1 X10*3/uL (0.0-0.2); Basophils Percent Auto 1.1 % (0-2); Eosinophils Absolute Auto 0.3 X10*3/uL (0.0-0.4); Eosinophils Percent Auto 4.8 % (0-4); Hematocrit 34.1 % (42.0-52.0); Hemoglobin 11.2 g/dl (14.0-18.0); Imm Gran Abs Auto 0.02 X10*3/uL (0.00-0.03); Imm Gran Pct Auto 0.3 % (0.0-0.4); Lymphocytes Percent Auto 27.5 % (20-40); Mean Corpuscular HGB Conc 32.8 g/dl (31.0-36.0); Mean Corpuscular Hemoglobin 31.2 pg (27.0-33.0); Mean Platelet Volume 9.2 fL (9.4-12.4); Monocytes Absolute Auto 0.7 X10*3/uL (0.1-1.2); Monocytes Percent Auto 9.9 % (2-11); Neutrophils Percent Auto 56.4 % (45-73); Platelet Count 323 X10*3/uL (160-400); Red Blood Count 3.59 X10*6/uL (4.60-5.80); Red Cell Distribution Width 13.6 % (11.0-16.0); White Blood Count 7.1 X10*3/uL (4.8-10.8)
[2023-11-13 13:46] LABS: Estimated Average Glucose 120 mg/dL; Hemoglobin A1c % 5.8 % (<6.0)
[2023-11-13 14:00] LABS: Alanine Aminotransferase 19 U/L (0-40); Alkaline Phosphatase 118 U/L (39-117); Anion Gap 12 (12-20); Aspartate Amino Transferase 19 U/L (5-37); Bilirubin Total 0.3 mg/dL (0.0-1.0); Blood Urea Nitrogen 34 mg/dL (9-16); Calcium 9.8 mg/dL (8.4-10.2); Carbon Dioxide 25 mmol/L (22-29); Chloride 106 mmol/L (96-108); Estimated Glomerular Filt Rate 32; Glucose Random 99 mg/dL (60-115); Potassium 5.2 mmol/L (3.3-5.1); Sodium 138 mmol/L (135-145); Total Protein 7.3 g/dL (6.5-8.0)
== END 2023-11-13 11:01 | disposition home or self-care (01) ==
LOC: HO.10HDL 11:00
PROVIDERS: Visit Provider Internal Medicine
DX: I12.9 Hypertensive chronic kidney disease with stage 1 through stage 4 chronic kidney disease, or unspecified chronic kidney disease (principal); N18.9 Chronic kidney disease, unspecified; D63.1 Anemia in chronic kidney disease; M10.9 Gout, unspecified; E11.9 Type 2 diabetes mellitus without complications
CPT/HCPCS: 36415; 80053; 83036; 85025

== ENCOUNTER 2024-02-15 07:04 | Outpatient (REF) | payer OTHER, SELFPAY ==
[2024-02-15 07:29] LABS: MANUAL DIFF FLAG NO
[2024-02-15 07:52] LABS: Basophils Absolute Auto 0.1 X10*3/uL (0.0-0.2); Basophils Percent Auto 0.9 % (0-2); Eosinophils Absolute Auto 0.4 X10*3/uL (0.0-0.4); Eosinophils Percent Auto 4.4 % (0-4); Hematocrit 35.1 % (42.0-52.0); Hemoglobin 11.5 g/dl (14.0-18.0); Imm Gran Abs Auto 0.03 X10*3/uL (0.00-0.03); Imm Gran Pct Auto 0.4 % (0.0-0.4); Lymphocytes Absolute Auto 2.4 X10*3/uL (1.2-4.9); Lymphocytes Percent Auto 29.5 % (20-40); Mean Corpuscular HGB Conc 32.8 g/dl (31.0-36.0); Mean Corpuscular Hemoglobin 31.3 pg (27.0-33.0); Mean Corpuscular Volume 95.6 fL (80.0-98.0); Mean Platelet Volume 8.9 fL (9.4-12.4); Monocytes Absolute Auto 0.7 X10*3/uL (0.1-1.2); Monocytes Percent Auto 8.7 % (2-11); Neutrophils Absolute Auto 4.5 x10*3/uL (2.0-8.3); Neutrophils Percent Auto 56.1 % (45-73); Platelet Count 304 X10*3/uL (160-400); Red Blood Count 3.67 X10*6/uL (4.60-5.80); Red Cell Distribution Width 13.3 % (11.0-16.0)
[2024-02-15 08:00] LABS: Estimated Average Glucose 120 mg/dL; Hemoglobin A1C 114.0942 umol/L; Hemoglobin A1c % 5.8 % (<6.0); Total Hemoglobin (HGBA1C) 2830.3193 umol/L
[2024-02-15 08:14] LABS: Alanine Aminotransferase 22 U/L (0-40); Albumin Level 3.9 g/dL (3.5-5.0); Alkaline Phosphatase 123 U/L (39-117); Anion Gap 13 (12-20); Aspartate Amino Transferase 34 U/L (5-37); Bilirubin Total 0.3 mg/dL (0.0-1.0); Blood Urea Nitrogen 35 mg/dL (9-16); Calcium 9.7 mg/dL (8.4-10.2); Carbon Dioxide 24 mmol/L (22-29); Chloride 108 mmol/L (96-108); Cholesterol 214 mg/dL (<200); Estimated Glomerular Filt Rate 34; Glucose Random 103 mg/dL (60-115); HDL Cholesterol 49 mg/dL (>40); LDL Cholesterol Calculated 135 mg/dL (<100); Potassium 5.4 mmol/L (3.3-5.1); Sodium 140 mmol/L (135-145); Total Protein 7.2 g/dL (6.5-8.0); Triglycerides 152 mg/dL (<150); Uric Acid 5.2 mg/dL (3.4-7.0)
[2024-02-15 08:44] LABS: Prostate Specific Antigen 2.84 ng/mL (<0.05-4.0); Vitamin B12 348 pg/mL (200-900)
[2024-02-15 11:45] LABS: Appearance Urine Clear; Color Urine Yellow; Glucose Urine UA Negative (Negative); Leukocyte Esterase Urine Negative (Negative); Nitrite Urine Negative (Negative); PH 5.5 (5.0-9.0); Specific Gravity - Urine 1.015 (1.005-1.025); Urine Blood Negative (Negative); Urine Ketones Negative (Negative); Urine Protein Negative (Neg-Trace)
[2024-02-15 12:22] LABS: Creatinine Urine 127.88 mg/dL
== END 2024-02-15 07:05 | disposition home or self-care (01) ==
LOC: HO.LAB 07:04
PROVIDERS: PCP Internal Medicine; Visit Provider Internal Medicine
DX: J44.9 Chronic obstructive pulmonary disease, unspecified (principal); E11.22 Type 2 diabetes mellitus with diabetic chronic kidney disease; I12.9 Hypertensive chronic kidney disease with stage 1 through stage 4 chronic kidney disease, or unspecified chronic kidney disease; N18.9 Chronic kidney disease, unspecified; M10.9 Gout, unspecified; Z12.5 Encounter for screening for malignant neoplasm of prostate
CPT/HCPCS: 36415; 80053; 80061; 81003; 82043; 82570; 82607; 83036; 84153; 84550; 85025

== ENCOUNTER 2024-02-24 15:53 | Outpatient (REF) | payer OTHER, SELFPAY ==
--- NOTE | ~2024-02-24 | US_ITS ---
EXAMINATION: US TRIPLEX LOWER EXTREMITY, LEFT CLINICAL INFORMATION: Rule out DVT COMPARISON: None available. TECHNIQUE: Color-flow triplex imaging with spectral analysis and compression Doppler were performed on the left lower extremity. FINDINGS: Respiratory variation, normal compression and augmented flow are noted throughout the left lower extremity. The visualized common femoral vein, superficial femoral vein, profunda femoral vein, popliteal vein and posterior tibial venous segments show no evidence of deep venous thrombosis. There is no Marshall's cyst. US/US venous duplex LE LT IMPRESSION: No evidence of deep venous thrombosis involving the left lower extremity. Peroneal vein not visualized. Electronically signed by: Christian Healy DO 02/24/2024 05:01 PM EST
== END 2024-02-24 15:54 | disposition home or self-care (01) ==
LOC: HO.US 15:53
PROVIDERS: PCP Internal Medicine; Visit Provider Internal Medicine
DX: R22.43 Localized swelling, mass and lump, lower limb, bilateral (principal)
CPT/HCPCS: 93971

== ENCOUNTER 2024-07-03 08:29 | Outpatient (REF) | payer MEDICARE, SELFPAY ==
--- OUTSIDE RECORDS SUMMARY | 2024-07-03 08:41 | XMS_ITS | Encounter Summary ---
Author Organization [facility], Address [address] [place] [address] Phone Care Team Providers Care Livestock Exhibitor Name Role Phone Yoni Avila MD Primary Care Provider [phone] Encounter Details Date Type Department Care Team (Late st Contact Info) Description 05/13/2020 Orders Only [facility] - [address] [facility] [address] [place] [address] Gloria Ford MD Chronic kidney disease stage 3 Social History Tobacco Use Types Packs/Day Years Used Date Smoking Tobacco: Former Cigarettes Q uit: 05/13/1970 Alcohol Use Standard Drinks/Week Comments Yes 0 (1 standard drink = 0.6 oz pure alcohol) Alcoholic Drinks/day: Occasional social drink Sex and Gender Information Value Date Recorded Sex Assigned at Not on file Legal Sex Male 4:33 PM EST Gender Identity Not on file Sexual Orientation Not on file 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
--- OUTSIDE RECORDS SUMMARY | 2024-07-03 08:41 | XMS_ITS | Clinical Summary ---
Author Organization [facility] Address [address] [facility] [address] [place] [address] Phone Care Team Providers Care Amplifier Mechanic Name Role Phone Yoni Avila MD Primary Care Provider [phone] Allergies Active Allergy Reactions Criticality Noted Date Comments Cortisone Other (see comments) 11/04/2020 Oxycodone-Acetaminophen Other (see comments) Medications metFORMIN (GLUCOPHAGE) 500 MG tablet Take 1 tablet by mouth 1 (one) time each day 01/18/2016 Active lisinopril (PRINIVIL,ZESTR IL) 10 MG tablet Take 1 tablet by mouth 1 (one) time each day 01/18/2016 Active allopurinol (ZYLOPRIM) 100 MG tablet Take 1 tablet by mouth 2 (two) times a day 05/21/2016 Active omeprazole (PriLOSEC) [address] capsule Take 1 capsule by mouth 1 (one) time each day 05/21/2016 Active Magnesium 250 MG tablet Take 2 tablets by mouth 1 (one) time each day Active mupirocin (BACTROBAN) 2 % ointment APPLY TO AFFECTED AREA 3 TIMES A DAY 11/04/2020 Active Cholecalciferol (Vitamin D) 25 MCG (1000 UT) tablet Take 2 Units by mouth daily Active Active Problems Problem Noted Date Diagnosed Date Hyperkalemia 05/09/2021 Hypertensive renal disease 11/04/2020 Essential hypertension 09/24/2020 Type 2 diabetes mellitus 09/24/2020 Stage 3b chronic kidney disease 05/16/2020 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 0 05/13/2019 Anemia of chronic renal failure 05/06/2019 Renal disorder due to type 2 diabetes mellitus 0 05/06/2019 Proteinuria Immunizations Name Administration Dates Next Due Pneumococcal Polysaccharide 11/13/2014, 5 Family History Medical History Relation Comments Heart disease Child 1 ME Hypertension Child 1 Diabetes Child 2 2 sons Heart disease Child 3 ME 1 son Hypertension Child 4 Diabetes Son 2 Sons Relation Status Comments Child 1 Child 2 Child 3 Child 4 Son Social History Tobacco Use Types Packs/Day Years [...] 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 Not on file Not on file Last Filed Vital Signs Vital Sign Reading Time Taken Comments Blood Pressure 120/62 01/09/2022 9:35 AM EDT Pulse 68 01/09/2022 9:35 AM EDT Temperature 36.7 ??C (98 ??F) 05/13/2019 11:04 AM EST Respiratory Rate 14 01/09/2022 9:35 AM EDT Oxygen Saturation - - Inhaled Oxygen Concentration - - Weight 118 kg (260 lb) 01/09/2022 9:35 AM EDT Height 177.8 cm (5' 10 ) 01/09/2022 9:35 AM EDT Body Mass Index 37.31 01/09/2022 9:35 AM EDT Plan of Treatment Health Maintenance Due Date Last Done Comments Pneumococcal Vaccine: 65+ Years (3 of 3 - PCV) 11/14/2015 11/13/2014, 11/13/2014 Diabetes: Hemoglobin A1C 05/06/2019 05/04/2017 Diabetes: Ophthalmology Exam 05/06/2019 Diabetes: Pedal Pulse Checked 05/06/2019 Diabetes: Sensory Foot Exam 05/06/2019 Diabetes: Visual Foot Exam 05/06/2019 Influenza Vaccine (#1) 2023 Hepatitis B Vaccine Aged Out No longe r eligible based on patient's age to complete this topic Procedures Procedure Name Priority Date/Time Associated Diagnosis Comments LAB QUILL COLLECTOR Routine 05/04/2017 8:00 AM EST from Last 3 Months or Most Recently Relevant to Health Maintenance Results * (ABNORMAL) Lab Silver Miner (05/04/2017 8:00 AM EST) Creatinine 1.51(H) 0.4 - 1.1 mg/dL [facility] Phosphorus, Serum 3.1 2.5 - 4.5 mg/dL [facility] Hematocrit 37.3 % [facility] AST (SGOT) 24 U/L [facility] PTH 60 pg/ml [facility] Potassium 5.1 3.6 - 5.2 mmol/L [facility] Carbon Dioxide (CO2) 26 22 - 29 mmol/L [facility] BUN 26(H) 8 - 23 mg/dL [facility] Platelets 338 150 - 450 K/uL [facility] Hemoglobin A1C 5.5 % [facility] Creatinine, Urine 116.55 mg/dl [facility] Sodium 138 133 - 145 mmol/L [facility] GFR Calculated 45 ml/min [facility] Hgb 12.1 12.0 - 16.0 g/dL [facility] WBC 6.7 4.5 - 11.0 K/uL [facility] ALT (SGPT) 29 U/L [facility] Protein, Ur 8.8 0 - 20 mg/dL [facility] Calcium 9.1 8.4 - 10.2 mg/dL [facility] Glucose 122 mg/dl [facility] 05/04/2017 8:00 AM EST [facility] [id number] LICITED RESULTS Final Result [facility] from Last 3 Months or Most Recently Relevant to Health Maintenance Insurance [facility] [address] [place] [address] Care Teams Amplifier Mechanic Relationship Specialty Start Date End Date Yoni Avila MD [address] [place], [place] PCP - General 02/24/19
--- OUTSIDE RECORDS SUMMARY | 2024-07-03 08:41 | XMS_ITS | Encounter Summary ---
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
--- OUTSIDE RECORDS SUMMARY | 2024-07-03 08:42 | XMS_ITS | Encounter Summary ---
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
--- OUTSIDE RECORDS SUMMARY | 2024-07-03 08:42 | XMS_ITS | Encounter Summary ---
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
--- OUTSIDE RECORDS SUMMARY | 2024-07-03 08:42 | XMS_ITS | Encounter Summary ---
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
--- OUTSIDE RECORDS SUMMARY | 2024-07-03 08:42 | XMS_ITS | Encounter Summary ---
Author Organization [facility], Address [address] [place] [address] Phone Care Team Providers Care Chief Concierge Name Role Phone Yoni Avila MD Primary Care Provider [phone] Encounter Details Date Type Department Care Team (Late st Contact Info) Description 08/12/2019 Orders Only [facility] [address] [place] [address] Gloria Ford MD Chronic kidney disease stage [...] on file Sexual Orientation Not on file documented as of this encounter Plan of Treatment Not on file documented as of this encounter Visit Diagnoses Diagnosis Chronic kidney disease stage 3 (HCC) documented in this encounter Care Teams Chief Concierge Relationship Specialty Start Date End Date Yoni Avila MD [address] [place] PCP - General 02/24/19 documented as of this encounter
[2024-07-03 10:25] LABS: MANUAL DIFF FLAG NO
[2024-07-03 10:31] LABS: Basophils Absolute Auto 0.1 X10*3/uL (0.0-0.2); Basophils Percent Auto 0.8 % (0-2); Eosinophils Absolute Auto 0.5 X10*3/uL (0.0-0.4); Eosinophils Percent Auto 6.4 % (0-4); Hemoglobin 11.3 g/dl (14.0-18.0); Imm Gran Abs Auto 0.02 X10*3/uL (0.00-0.03); Imm Gran Pct Auto 0.3 % (0.0-0.4); Lymphocytes Absolute Auto 2.1 X10*3/uL (1.2-4.9); Lymphocytes Percent Auto 27.4 % (20-40); Mean Corpuscular HGB Conc 32.3 g/dl (31.0-36.0); Mean Corpuscular Hemoglobin 31.1 pg (27.0-33.0); Mean Corpuscular Volume 96.4 fL (80.0-98.0); Mean Platelet Volume 9.4 fL (9.4-12.4); Monocytes Absolute Auto 0.6 X10*3/uL (0.1-1.2); Monocytes Percent Auto 7.7 % (2-11); Neutrophils Absolute Auto 4.5 x10*3/uL (2.0-8.3); Neutrophils Percent Auto 57.4 % (45-73); Platelet Count 301 X10*3/uL (160-400); Red Blood Count 3.63 X10*6/uL (4.60-5.80); Red Cell Distribution Width 13.2 % (11.0-16.0); White Blood Count 7.8 X10*3/uL (4.8-10.8)
[2024-07-03 11:01] LABS: Estimated Average Glucose 126 mg/dL
[2024-07-03 11:21] LABS: Alanine Aminotransferase 22 U/L (0-40); Albumin Level 3.9 g/dL (3.5-5.0); Alkaline Phosphatase 127 U/L (39-117); Anion Gap 11 (12-20); Aspartate Amino Transferase 24 U/L (5-37); Bilirubin Total 0.3 mg/dL (0.0-1.0); Blood Urea Nitrogen 37 mg/dL (9-16); Calcium 9.4 mg/dL (8.4-10.2); Carbon Dioxide 24 mmol/L (22-29); Chloride 108 mmol/L (96-108); Estimated Glomerular Filt Rate 41; Glucose Random 122 mg/dL (60-115); Potassium 5.3 mmol/L (3.3-5.1); Sodium 138 mmol/L (135-145); Total Protein 7.5 g/dL (6.5-8.0)
== END 2024-07-03 08:30 | disposition home or self-care (01) ==
LOC: HO.10HDL 08:29
PROVIDERS: Visit Provider Internal Medicine
DX: I12.9 Hypertensive chronic kidney disease with stage 1 through stage 4 chronic kidney disease, or unspecified chronic kidney disease (principal); N18.9 Chronic kidney disease, unspecified; Z13.1 Encounter for screening for diabetes mellitus
CPT/HCPCS: 36415; 80053; 83036; 85025

== ENCOUNTER 2024-10-14 10:44 | Outpatient (AMB) | payer MEDICARE, SELFPAY ==
--- NOTE | 2024-10-14 10:52 | A.OFFPC_ITS ---
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 Accompanied by: Self / Same As Patient Allergies acetaminophen (Percocet) Allergy (Unknown, Verified 10/14/24 10:52) vomiting cortisone (CORTISONE) Allergy (Unknown, Verified 10/14/24 10:52) SWELLING nitroglycerin (NITROGLYCERIN) Allergy (Unknown, Verified 10/14/24 10:52) LOW BP AND PASSED OUT, STATES NEEDED CPR oxycodone (OXYCODONE) Adverse Reaction (Intermediate, Verified 10/14/24 10:52) NAUSEA & VOMITING indomethacin (From INDOCIN) Adverse Reaction (Mild, Verified 10/14/24 10:52) STOMACH UPSET Medication List - Last Reconciled 10/14/24 by LOENA Patrick allopurinol 100 mg PO BID esomeprazole magnesium 20 mg PO DAILY lisinopril 10 mg PO DAILY metformin 500 mg PO ONCE omeprazole 20 mg PO DAILY HPI HPI Comments History of Present Illness Details 84-year-old male with history of hyperte nsion, severe ANNA on CPAP, gout, type 2 diabetes, anemia of chronic disease, CKD stage 3, hyperlipidemia, and obesity presents to the office today for management of chronic conditions and to establish care. Hypertension-compliant with lisinopril 10 mg. Blood pressure in the office today Hyperlipidemia-last LDL 135, total cholesterol 214. Not currently on statin medication Gout-managed with allopurinol 100 mg b.i.d.. No recent flares. Type 2 diabetes-last hemoglobin A1c 6.0%. Controlled with metformin. CKD stage 3- GFR 41. On lisinopril for renal protection. Not following with nephrology any longer. GERD-well managed with omeprazole ANNA-compliant with CPAP Concerns: None Health maintenance: Colonoscopy and PSA no longer indicated ROS: General: No fevers, malaise, unintentional weight loss HEENT: No blurred vision, diplopia. No sore throat, nasal congestion, rhinorrhea, sinus pain, ear pain Cardiovascular: No chest pain, palpitations, or leg edema Respiratory: No shortness of breath, wheezing, cough GI: No abdominal pain, nausea, vomiting, diarrhea, constipation, melena, hematochezia : No dysuria, hematuria, increased urinary frequency, decreased urinary output MSK: No myalgia, back pain Neuro: No headaches, weakness, paresthesias Skin: No rashes or lesions EXAM: Constitutional - Awake and Alert, No apparent distress Eyes - PERRL Cardiovascular - S1S2, RRR, No edema Respiratory - Normal lung expansion, Normal respiratory effort, No respiratory distress, CTA bilaterally Extremities - no calf tenderness bilaterally, no swelling Skin - Warm/Dry Neurological - Alert & oriented x3 Psychological - Appropriate affect [facility] Medical History (Updated 10/14/24 @ 11:18 by LEONA Patrick) Diabetic polyneuropathy Anemia of chronic disease CKD stage 3 due to type 2 diabetes mellitus Diabetic nephropathy Hyperlipidemia Nocturnal hypoxemia ANNA (obstructive sleep apnea) Obesity (BMI 30-39.9) GERD (gastroesophageal reflux disease) Arthritis Diabetes Gout Hypertension Physical exam (Primary Care) Vital Signs: Last Vital Signs Temp 98.2 F 10/14/24 10:58 Pulse 86 10/14/24 10:58 Resp 16 10/14/24 10:58 BP 152/70 H 10/14/24 10:58 Pulse Ox 96 10/14/24 10:58 Oxygen Delivery Method Room Air 10/14/24 10:58 BMI result Body Mass Index 37.7 Coding Level of Care Code New Pt Level 4 (31177) Complex EM visit Add On G2211 Diagnoses ANNA (obstructive sleep apnea) G47.33 Obesity E66.9 Hypertension I10 Hyperlipidemia E78.5 Diabetic nephropathy E11.21 Assessment & Plan Assessment & Plan (1) ANNA (obstructive sleep apnea): Comment: FINDINGS OF SLEEP STUDY ARE CONSISTENT WITH SEVERE OBSTRUCTIVE SLEEP APNEA, WITH NOCTURNAL HYPOXEMIA INDICATING SLEEP RELATED HYPOVENTILATION. PATIENT HAD SUCCESSFUL CPAP TITRATION, OBSTRUCTIVE EVENTS AND HYPOXEMIA CORRECTED WITH PRESSURE OF 14 CM. PATIENT WILL BE STARTED ON CPAP THERAPY SOON POSSIBLE. NASAL MASK OF MEDIUM SIZE AND PRESSURE OF 14 CM IS BEING ORDERED. PATIENT NEEDS TO START CPAP THERAPY BUT BECAUSE OF THE COMPLEX FINDINGS HE HE SHOULD HAVE CPAP TITRATION IN THE SLEEP LAB, WHICH IS BEING SCHEDULED ALL THE NECESSARY EDUCATION PROVIDED TO THE PATIENT Code(s): G47.33 - Obstructive sleep apnea (adult) (pediatric) Category: Medical Plan: Continue CPAP (2) Obesity: Code(s): E66.9 - Obesity, unspecified Category: Medical Plan: Weight loss efforts encouraged (3) Hypertension: Code(s): I10 - Essential (primary) hypertension Category: Medical Plan: Controlled on recheck. Continue lisinopril. Follow potassium levels closely (4) Hyperlipidemia: Code(s): E78.5 - Hyperlipidemia, unspecified Category: Medical Plan: Lipid panel ordered (5) Diabetic nephropathy: Code(s): E11.21 - Type 2 diabetes mellitus with diabetic nephropathy Category: Medical Plan: CKD stage 3 has been stable. Continue lisinopril for renal protection. Continue metformin in follow-up for annual eye exams. We will check hemoglobin A1c prior to next visit. Plan Follow-up in the office in 6 months. Labs to be completed prior to visit. Orders: Orders Lipid Panel 6 Months D63.8 - Anemia in other chronic diseases classified elsewhere, E11.9 - Type 2 diabetes mellitus without complications, E78.5 - Hyperlipidemia, unspecified, I10 - Essential (primary) hypertension Microalbumin, Random (w Creat) 6 Months E11.21 - Type 2 diabetes mellitus with diabetic nephropathy, E11.22 - Type 2 diabetes mellitus with diabetic chronic kidney disease, E78.5 - Hyperlipidemia, unspecified, I10 - Essential (primary) hypertension, N18.30 - Chronic kidney disease, stage 3 unspecified Basic Metabolic Panel 6 Months D63.8 - Anemia in other chronic diseases classified elsewhere, I10 - Essential (primary) hypertension Hemoglobin A1c 6 Months D63.8 - Anemia in other chronic diseases classified elsewhere, E11.9 - Type 2 diabetes mellitus without complications, E78.5 - Hyperlipidemia, unspecified, I10 - Essential (primary) hypertension Complete Blood Count Auto Diff 6 Months D63.8 - Anemia in other chronic diseases classified elsewhere, I10 - Essential (primary) hypertension
[2024-10-14 10:58] VITALS: BP 152/70; PULSE 86; RESP 16; TEMP 36.8; O2SAT 96; BMI 37.7
[2024-10-14 11:27] VITALS: BP 134/64
--- OUTSIDE RECORDS SUMMARY | 2024-10-14 12:42 | XMS_ITS | Encounter Summary ---
Author Organization [facility], Address [address] [place] [address] Phone Care Team Providers Care Eyelet Cutter Name Role Phone Yoni Avila MD Primary Care Provider [phone] Encounter Details Date Type Department Care Team (Late st Contact Info) Description 05/13/2020 Orders Only [facility] - [address] [facility] [address] [place] [address] Gloria Ford MD Chronic kidney disease stage [...] Industry Job Start Date Job End Date [employer] Not on file Not on file Not on file documented as of this encounter Plan of Treatment Not on file documented as of this encounter Visit Diagnoses Diagnosis Chronic kidney disease stage 3 (HCC) documented in this encounter Care Teams Eyelet Cutter Relationship Specialty Start Date End Date Yoni Avila MD [address] [place] PCP - General 02/24/19 documented as of this encounter
== END 2024-10-14 11:45 | disposition home or self-care (01) ==
LOC: HO.HMCHD 10:45
PROVIDERS: PCP Internal Medicine; Visit Provider Physician Assistant
DX: G47.33 Obstructive sleep apnea (adult) (pediatric) (principal); E66.9 Obesity, unspecified; I10 Essential (primary) hypertension; E78.5 Hyperlipidemia, unspecified; E11.21 Type 2 diabetes mellitus with diabetic nephropathy

== ENCOUNTER → 2024-10-14 10:44 | Outpatient (BNVA) | payer MEDICARE, SELFPAY | PROVIDERS: PCP Internal Medicine; Visit Provider Physician Assistant | DX: G47.33 Obstructive sleep apnea (adult) (pediatric) (principal); E66.9 Obesity, unspecified; I10 Essential (primary) hypertension; E78.5 Hyperlipidemia, unspecified; E11.21 Type 2 diabetes mellitus with diabetic nephropathy | CPT/HCPCS: 99202 ==

== ENCOUNTER 2025-03-08 12:51 | Outpatient (AMB) | payer MEDICARE, SELFPAY ==
--- NOTE | 2025-03-08 12:46 | MHC.PC.OV ---
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 Accompanied by: Self / Same As Patient Allergies acetaminophen (Percocet) Allergy (Unknown, Verified 03/08/25 12:47) vomiting cortisone (CORTISONE) Allergy (Unknown, Verified 03/08/25 12:47) SWELLING nitroglycerin (NITROGLYCERIN) Allergy (Unknown, Verified 03/08/25 12:47) LOW BP AND PASSED OUT, STATES NEEDED CPR oxycodone (OXYCODONE) Adverse Reaction (Intermediate, Verified 03/08/25 12:47) NAUSEA & VOMITING indomethacin (From INDOCIN) Adverse Reaction (Mild, Verified 03/08/25 12:47) STOMACH UPSET Medication List - Last Reconciled 03/08/25 by LEONA Patrick allopurinol 100 mg PO BID 90 days cholecalciferol (vitamin D3) 25 mcg PO DAILY lisinopril 10 mg PO DAILY magnesium 250 mg PO DAILY metformin 500 mg PO ONCE omeprazole 20 mg PO DAILY Tobacco use date assessed: 03/08/25 Fall risk assessment: 2 + Falls in past year Last assessed Fall Risk: 03/08/25 Dental Screening Dental Screen Date: 03/08/25 Did you have a dental visit in the last 12 months?: No Did you have a dental problem in the last 6 months where you did not have access to dental care?: Yes Was dental information given to patient?: Patient declined HPI HPI Comments History of Present Illness Details 84-year-old male with history of hypertension, severe ANNA on CPAP, gout, type 2 diabetes, anemia of chronic disease, CKD stage 3, hyperlipidemia, and obesity presents to the office today for management of chronic conditions and to establish care. Hypertension-compliant with lisinopril 10 mg. Blood pressure in the office today Hyperlipidemia-last LDL 135, total cholesterol 214. Not currently on statin medication Gout-managed with allopurinol 100 mg b.i.d.. No recent flares. Type 2 diabetes-last hemoglobin A1c 6.0%. Controlled with metformin. CKD stage 3- GFR 41. On lisinopril for renal protection. Not following with nephrology any longer. GERD-well managed with omeprazole ANNA-compliant with CPAP Concerns: Pain in LLE. Concerns about infection. However, no erythema, warmth, fevers, drainage Health maintenance: Colonoscopy and PSA no longer indicated ROS: see hpi EXAM: Constitutional - Awake and Alert, No apparent distress Eyes - PERRL Cardiovascular - S1S2, RRR, 3+ BLE edema Respiratory - Normal lung expansion, Normal respiratory effort, No respiratory distress, CTA bilaterally Extremities - no calf tenderness bilaterally, no swelling Skin - Warm/Dry. [place] scarring over the anterior tibia. No erythema or warmth Neurological - Alert & oriented x3 Psychological - Appropriate affect [facility] Medical History (Updated 03/08/25 @ 13:56 by LEONA Patrick) Lower extremity edema Diabetic polyneuropathy Anemia of chronic disease CKD stage 3 due to type 2 diabetes mellitus Diabetic nephropathy Hyperlipidemia Nocturnal hypoxemia ANNA (obstructive sleep apnea) Obesity (BMI 30-39.9) GERD (gastroesophageal reflux disease) Arthritis Diabetes Gout Hypertension Social History Housing: Apartment Patient Tobacco Use Status: Former Tobacco user Years Smoked: 15-20 years e-Cigarette/Vaping Use: Never Used service: No Current occupational status: retired Questionnaire AUDIT C Alcohol Use Questionnaire (AUDIT-C) 1. How often do you have a drink containing alcohol?: Monthly or less 2. How many drinks containing alcohol do you have on a typical day when you are drinking?: 1 or 2 3. How often do you have six or more drinks on one occasion?: Never Total Score: 1 Physical exam (Primary Care) Vital Signs: Last Vital Signs Temp 97.8 F 03/08/25 13:03 Pulse 79 03/08/25 13:03 Resp 20 03/08/25 13:03 BP 136/68 03/08/25 13:17 Pulse Ox 96 03/08/25 13:03 Oxygen Delivery Method Room Air 03/08/25 13:03 BMI result Body Mass Index 37.7 Tobacco/Smoking Status: Tobacco use Status Tobacco use date assessed 03/08/25 03/08/25 12:48 Patient Tobacco Use Status Former Tobacco user 03/08/25 13:06 e-Cigarette/Vaping Use Never Used 03/08/25 13:06 Coding Level of Care Code Est Pt Level 4 (57210) Complex EM visit Add On G2211 Diagnoses ANNA (obstructive sleep apnea) G47.33 Obesity E66.9 Hypertension I10 Hyperlipidemia E78.5 Diabetic nephropathy E11.21 Lower extremity edema R60.0 Assessment & Plan Assessment & Plan (1) ANNA (obstructive sleep apnea): Comment: FINDINGS OF SLEEP STUDY ARE CONSISTENT WITH SEVERE OBSTRUCTIVE SLEEP APNEA, WITH NOCTURNAL HYPOXEMIA INDICATING SLEEP RELATED HYPOVENTILATION. PATIENT HAD SUCCESSFUL CPAP TITRATION, OBSTRUCTIVE EVENTS AND HYPOXEMIA CORRECTED WITH PRESSURE OF 14 CM. PATIENT WILL BE STARTED ON CPAP THERAPY SOON POSSIBLE. NASAL MASK OF MEDIUM SIZE AND PRESSURE OF 14 CM IS BEING ORDERED. PATIENT NEEDS TO START CPAP THERAPY BUT BECAUSE OF THE COMPLEX FINDINGS HE HE SHOULD HAVE CPAP TITRATION IN THE SLEEP LAB, WHICH IS BEING SCHEDULED ALL THE NECESSARY EDUCATION PROVIDED TO THE PATIENT Code(s): G47.33 - Obstructive sleep apnea (adult) (pediatric) Category: Medical Plan: Continue CPAP (2) Obesity: Code(s): E66.9 - Obesity, unspecified Category: Medical Plan: Weight loss efforts encouraged (3) Hypertension: Code(s): I10 - Essential (primary) hypertension Category: Medical Plan: Controlled on recheck. Continue lisinopril. Follow potassium levels closely (4) Hyperlipidemia: Code(s): E78.5 - Hyperlipidemia, unspecified Category: Medical Plan: Lipid panel ordered (5) Diabetic nephropathy: Code(s): E11.21 - Type 2 diabetes mellitus with diabetic nephropathy Category: Medical Plan: CKD stage 3 has been stable. Continue lisinopril for renal protection, however monitored potassium levels. Continue metformin in follow-up for annual eye exams. We will check hemoglobin A1c prior to next visit. (6) Lower extremity edema: Code(s): R60.0 - Localized edema Category: Medical Plan: No evidence of infection. Likely has venous insufficiency. Discussed the importance of managing edema to prevent ulceration which would put him at risk for infection especially in the setting of type 2 diabetes. Trial furosemide 20 mg daily. Also recommend compression stockings and leg elevation. Plan Follow-up in the office in 6 months. Labs to be completed today as well as several days prior to next visit Orders: Orders Basic Metabolic Panel 6 Months E11.21 - Type 2 diabetes mellitus with diabetic nephropathy, E78.5 - Hyperlipidemia, unspecified, G47.33 - Obstructive sleep apnea (adult) (pediatric), I10 - Essential (primary) hypertension Hemoglobin A1c 6 Months E11.21 - Type 2 diabetes mellitus with diabetic nephropathy, E78.5 - Hyperlipidemia, unspecified, G47.33 - Obstructive sleep apnea (adult) (pediatric), I10 - Essential (primary) hypertension Medications: New furosemide (Lasix) 20 mg PO DAILY 90 tabs 1RF
[2025-03-08 13:03] VITALS: BP 140/74; PULSE 79; RESP 20; TEMP 36.6; O2SAT 96; BMI 37.7
[2025-03-08 13:17] VITALS: BP 136/68
== END 2025-03-08 13:31 | disposition home or self-care (01) ==
LOC: HO.HMCHD 12:51
PROVIDERS: PCP Internal Medicine; Visit Provider Physician Assistant
DX: G47.33 Obstructive sleep apnea (adult) (pediatric) (principal); E66.9 Obesity, unspecified; I10 Essential (primary) hypertension; E78.5 Hyperlipidemia, unspecified; E11.21 Type 2 diabetes mellitus with diabetic nephropathy; R60.0 Localized edema

== ENCOUNTER → 2025-03-08 12:51 | Outpatient (BNVA) | payer MEDICARE, SELFPAY | PROVIDERS: PCP Internal Medicine; Visit Provider Physician Assistant | DX: G47.33 Obstructive sleep apnea (adult) (pediatric) (principal); Z99.89 Dependence on other enabling machines and devices; E66.9 Obesity, unspecified; I10 Essential (primary) hypertension; E78.5 Hyperlipidemia, unspecified; E11.21 Type 2 diabetes mellitus with diabetic nephropathy; R60.0 Localized edema | CPT/HCPCS: 99212 ==

== ENCOUNTER 2025-03-25 10:52 | Outpatient (REF) | payer MEDICARE, SELFPAY ==
[2025-03-25 13:40] LABS: MANUAL DIFF FLAG NO
[2025-03-25 13:47] LABS: Hematocrit 35.4 % (42.0-52.0); Hemoglobin 11.5 g/dl (14.0-18.0); Imm Gran Abs Auto 0.02 X10*3/uL (0.00-0.03); Imm Gran Pct Auto 0.3 % (0.0-0.4); Lymphocytes Absolute Auto 2.0 X10*3/uL (1.2-4.9); Mean Corpuscular HGB Conc 32.5 g/dl (31.0-36.0); Mean Corpuscular Hemoglobin 30.9 pg (27.0-33.0); Mean Corpuscular Volume 95.2 fL (80.0-98.0); NRBC Abs Auto 0.000 X10*3/uL (0.0-0.012); NRBC Pct Auto 0.0 /100WBC (0.0-0.2); Platelet Count 369 X10*3/uL (160-400); Red Blood Count 3.72 X10*6/uL (4.60-5.80); White Blood Count 8.0 X10*3/uL (4.8-10.8)
[2025-03-25 14:09] LABS: Microalbum/Creatinine Ratio Ur 20.5 ug/mg cr (<30)
[2025-03-25 14:22] LABS: Anion Gap 12 (12-20); Blood Urea Nitrogen 49 mg/dL (9-16); Calcium 9.5 mg/dL (8.4-10.2); Carbon Dioxide 23 mmol/L (22-29); Chloride 109 mmol/L (96-108); Cholesterol 221 mg/dL (<200); Estimated Glomerular Filt Rate 29; HDL Cholesterol 36 mg/dL (>40); Potassium 4.9 mmol/L (3.3-5.1); Sodium 139 mmol/L (135-145); Triglycerides 276 mg/dL (<150)
== END 2025-03-25 10:53 | disposition home or self-care (01) ==
LOC: HO.10HDL 10:52
PROVIDERS: Visit Provider Physician Assistant
DX: I12.9 Hypertensive chronic kidney disease with stage 1 through stage 4 chronic kidney disease, or unspecified chronic kidney disease (principal); E11.22 Type 2 diabetes mellitus with diabetic chronic kidney disease; N18.30 Chronic kidney disease, stage 3 unspecified; D63.1 Anemia in chronic kidney disease; E78.5 Hyperlipidemia, unspecified
CPT/HCPCS: 36415; 80048; 80061; 82043; 82570; 83036; 85025